=== PATIENT | male | born 1945 | race Caucasian/White ===

== ENCOUNTER 2018-06-18 09:33 | Outpatient (CLI) | payer BC, SELFPAY ==
[2018-06-18 10:16] LABS: HCT 49.6 % (40.0-50.0); Mean Corp. HGB Concentration 34.3 g/dL (32.0-36.0); Mean Corpuscular Hemoglobin 32.8 pg (27.0-33.0); Mean Corpuscular Volume 95.6 fL (80-95); Mean Platelet Volume 10.5 fL (8.0-11.0); Platelet Count 194 x1000/uL (130-400); RBC 5.19 m/cumm (4.50-6.00); RBC Distribution Width 13.6 % (11.8-14.1)
[2018-06-18 11:30] LABS: ALT 21 U/L (12-78); AST 25 U/L (15-37); Alkaline Phosphatase 76 U/L (46-116); Anion Gap 12.3 mmol/L (3-11); BUN 24 mg/dL (7-18); Bilirubin, Total 0.7 mg/dL (0.2-1.0); CO2 24.7 mmol/L (21.0-32.0); CREATININE 1.06 mg/dL (0.70-1.30); Calcium 8.4 mg/dL (8.5-10.1); Chloride 104 mmol/L (98-107); Folate 12.2 ng/mL (8.6-20.0); Glucose 95 mg/dL (70-100); Sodium 141 mmol/L (136-145); Total Protein 6.6 g/dL (6.4-8.2); Vitamin B12 365 pg/mL (193-986)
[2018-06-22 15:42] LABS: Testosterone, Free 9.96 ng/dL (3.28-12.2); Testosterone, Total 586 ng/dL (240-950)
== END 2018-06-18 09:53 ==
PROVIDERS: PCP Family Medicine; Visit Provider Family Medicine
DX: F41.8 Other specified anxiety disorders (principal); G60.9 Hereditary and idiopathic neuropathy, unspecified; F43.21 Adjustment disorder with depressed mood
CPT/HCPCS: 36415; 80053; 82306; 84402; 84403; 85027; 82607; 82746

== ENCOUNTER 2019-01-03 07:58 | Outpatient (CLI) | payer BC, SELFPAY | END 2019-01-03 08:18 | PROVIDERS: PCP Family Medicine; Visit Provider Internal Medicine Cardiovascular Disease | DX: R94.31 Abnormal electrocardiogram [ECG] [EKG] (principal); I49.3 Ventricular premature depolarization | CPT/HCPCS: 93005; 93010 ==

== ENCOUNTER 2019-01-16 09:35 | Emergency (ER) | payer BC, SELFPAY ==
[2019-01-16 09:41] VITALS: BP 145/78; PULSE 61; RESP 16; TEMP 36.6; O2SAT 98
[2019-01-16] MEDS: Normal Saline 1,000 ML 150 ML IV (10:00)
--- NOTE | 2019-01-16 10:04 | ED.GENADUL_ITS ---
Discharge Plan Discharge Details Chief Complaint: Nk/Back Pain Primary Care Provider: Debi Bone ED Provider: Won Sierra Home Meds and New Rx's Prescriptions: No Action gabapentin 300 mg capsule 900 mg PO TID RF: 0 lorazepam [Ativan] 0.5 mg tablet 0.5 mg PO BID PRNRF: 0 duloxetine 30 mg capsule,delayed release(DR/EC) 30 mg PO DAILY RF: 0 duloxetine 60 mg capsule,delayed release(DR/EC) 60 mg PO DAILY RF: 0 baclofen 10 mg tablet 10 mg PO BID PRNRF: 0 mecobalamin (vitamin B12) 1,000 mcg tablet,disintegrating 1,000 mcg SL DAILY RF: 0 sennosides [Senna Laxative] 8.6 MG tablet 8.6 mg PO 4 tabs daily RF: 0 polyethylene glycol 3350 [Miralax] 17 GM powder in packet 17 gm PO PRN RF: 0 cyclobenzaprine 10 MG tablet 10 mg PO TID RF: 0 lidocaine [Lidoderm] 1 EACH adhesive patch,medicated 1 ea Topical ON 12 HRS/ OFF 12 HR RF: 0 MEDICAL MARIJUANA Inhalation PRN RF: 0 levalbuterol tartrate 45 mcg/actuation HFA aerosol inhaler 15,000,000 mcg Inhalation QID PRNRF: 0 zolpidem 10 MG tablet 10 mg PO .QHS RF: 0 docusate sodium [DOK] 100 mg Capsule 100 mg PO RF: 0 oxycodone 5 mg Tablet 5 - 10 mg PO PRN PRNRF: 0 Medical Decision Making 73-year-old gentleman history of chronic back pain who presents 5 days postop from a T8-T12 spinal fusion with persistent back pain and now worsening lower extremity weakness. Described an unremarkable postoperative course with gradual improvement in function. However, yesterday evening and this morning has been unable to stand independently because of subjective bilateral leg weakness. No associated constitutional complaints of increased pain, increased incisional pain or discharge, change in bowel habits, or urinary retention. Nonfocal exam except for CT with well approximated wound edges and no evidence of acute infection. Labs ordered and pending. Because of his acute subjective change in bilateral leg weakness temporally related to recent surgery, appropriate clinical assessment includes MRI imaging of his spine and contents. MRI unavailable at [facility] on weekends. Discussed case with neurosurgery resident and emergency physician at [facility] [place]. Patient accepted for transfer and more advanced imaging. Of note, patient's family described him having difficulty with ADLs since his discharge home from [facility]. Requesting higher level of management with physical therapy if patient discharged from the [facility] [place] emergency department. 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 Medical Records Medical records reviewed: Yes I reviewed the patient's medical records. Lab Data Lab results reviewed: Yes I reviewed the patient's lab results. Labs: Lab Results 01/16/19 01/16/19 Range/Units 10:01 10:01 WBC 7.31 (4.4-10.8) k/cumm RBC 4.25 L (4.50-6.00) m/cumm Hgb 14.2 (13.5-17.5) g/dL Hct 41.2 (40.0-50.0) % MCV 96.9 H (80-95) fL MCH 33.4 H (27.0-33.0) pg MCHC 34.5 (32.0-36.0) g/dL RDW 13.3 (11.8-14.1) % Plt Count 238 (130-400) x1000/uL MPV 9.9 (8.0-11.0) fL Immature Gran % 0.5 Neutrophils % 71.1 Lymphocytes % 14.0 Monocytes % 13.1 Eosinophils % 0.8 Basophils % 0.5 Absolute Neutrophils 5.19 (1.2-6.7) k/cumm Absolute Lymphocytes 1.02 L (1.2-3.4) k/cumm Absolute Monocytes 0.96 H (0.11-0.7) k/cumm Absolute Eosinophils 0.06 (0.0-0.7) k/cumm Absolute Basophils 0.04 (0.0-0.2) k/cumm Sodium 141 (136-145) mmol/L Potassium 3.6 (3.5-5.1) mmol/L Chloride 104 (98-107) mmol/L Carbon Dioxide 29.8 (21.0-32.0) mmol/L Anion Gap 7.2 (3-11) mmol/L BUN 17 (7-18) mg/dL Creatinine 0.99 (0.70-1.30) mg/dL Estimated GFR/1.73 m2 >= 60.00 (mL/min/1.73m2) Glucose 107 H (74-106) mg/dL Calcium 8.4 L (8.5-10.1) mg/dL HPI 73-year-old gentleman with a history of chronic back pain, depression, peripheral neuropathy. Recent underwent a spinal fusion T8-T12. Had an unremarkable postoperative course with persistent back pain minimally responsive through his outpatient medications. However, yesterday evening, noted being unable to stand independently from new leg weakness. This morning, he also was unable to stand up from associated leg weakness. Notes his back pain has been severe but responding somewhat to outpatient medications including OxyContin, baclofen, gabapentin. He denies significant change in incisional pain, drainage from his incision. Denies fever/chills, change in bowel habits, urinary retention, focal extremity weakness, or change in lower extremity coloration. Has had no significant headache, neck pain, chest pain, palpitations, dyspnea, or abdominal pain. Denies melena or hematochezia. General Date/Time Provider Initiated Documentation: 01/16/19 09:51 . Related Data Home Medications Medication Instructions Recorded Confirmed zolpidem 10 mg PO .QHS 01/10/13 01/16/19 polyethylene glycol 3350 [Miralax] 17 gm PO PRN gm 10/10/15 01/16/19 sennosides [Senna Laxative] 8.6 mg PO 4 tabs daily 10/10/15 01/16/19 cyclobenzaprine 10 mg PO TID tab-cap 04/09/17 01/16/19 lidocaine [Lidoderm] 1 ea TOPICAL ON 12 HRS/ OFF 12 HR 04/09/17 01/16/19 patch Medical Marijuana INHALATION PRN 04/30/17 01/03/19 gabapentin 300 mg capsule 900 mg PO TID cap 08/04/18 01/16/19 baclofen 10 mg tablet 10 mg PO BID PRN 12/23/18 01/16/19 duloxetine 30 mg capsule,delayed 30 mg PO DAILY 12/23/18 01/16/19 release duloxetine 60 mg capsule,delayed 60 mg PO DAILY 12/23/18 01/16/19 release lorazepam 0.5 mg tablet 0.5 mg PO BID PRN 12/23/18 01/16/19 mecobalamin (vitamin B12) 1,000 1,000 mcg SL DAILY 12/23/18 01/16/19 mcg disintegrating tablet,sublingual levalbuterol tartrate 45 15,000,000 mcg INHALATION QID PRN 01/03/19 01/16/19 mcg/actuation aerosol inhaler docusate sodium [DOK] 100 mg PO 01/16/19 oxycodone 5 - 10 mg PO PRN PRN 01/16/19 01/16/19 Allergies Allergy/AdvReac Type Severity Reaction Status Date / Time azithromycin Allergy Intermediate Unverified 01/16/19 09:44 chlorpheniramine Allergy Mild Unverified 01/16/19 09:44 [From Contac Cold-Flu Day and Night] phenylephrine HCl Allergy Mild Unverified 01/16/19 09:44 [From Contac Cold-Flu Day and Night] propoxyphene HCl Allergy Mild Unverified 01/16/19 09:44 [From Wygesic] tramadol Allergy Mild Unverified 01/16/19 09:44 General Stated Complaint: Nk/Back Pain DEIDRA: 3 Review of Systems All systems reviewed & are unremarkable except as noted in HPI and below PFSH Medical History Anxiety (Chronic) BPH (benign prostatic hyperplasia) (Chronic) Chronic back pain (Chronic) Depression (Chronic) Essential tremor (Chronic 04/30/17) Mild cognitive impairment (Chronic) Peripheral neuropathy (Chronic) Polycythemia (Chronic) Tubular adenoma of colon (Acute 11/28/16) Vitamin B12 deficiency (Chronic) Surgical History Colonoscopy - MAC (11/28/16) Repair of inguinal hernia Spinal Fusion t8-t10 Thyroid Family History Father Liver cancer Mother Arthritis Social History Smoking/Tobacco Use Status: Never Alcohol Intake: never Drug use: Occasionally Substance use type: marijuana Household members: spouse What type of physical activity do you participate in: none and normal ROM and activity Do you feel safe at home: Yes Do you feel safe in your relationship?: Yes Exam Narrative Exam Narrative: Nursing note and vital signs have been reviewed and noted. GENERAL: alert, active, no acute distress, well -hydrated, well-nourished HEENT: atraumatic/normocephalic, PERRLA, EOMI, conjunctiva clear, external ears/canals normal, nasal mucosa normal NECK: supple, full range of motion, no mass, normal lymphadenopathy, no thyromegaly CARDIOVASCULAR: RRR, no murmurs, nl pulses, no edema PULMONARY: nl effort, no audible wheezing or stridor, nl breath sounds with no focal deficit. no chest wall tenderness ABDOMEN: soft, non-tender, non-distended, no mass, no organomegaly EXTREMITY: normal muscle tone, all joints with FROM, no deformity or tenderness SKIN: no exanthem appreciated NEURO: gross motor exam normal, difficulty with stance and gait from subjective weakness/pain BACK: Midline incision with well approximated wound edges and appropriate erythema. No significant discharge swelling PSYCH: alert and oriented, Course Vital Signs Vital signs: Vital Signs Temperature 97.9 F 01/16/19 09:41 Pulse 61 01/16/19 09:41 Respiratory Rate 16 01/16/19 09:41 Blood Pressure 145/78 H 01/16/19 09:41 Pulse Oximetry 98 01/16/19 09:41 Temperature 97.9 F 01/16/19 09:41 Temperature Source Temporal Artery Scan 01/16/19 09:41 Pulse 61 01/16/19 09:41 Respiratory Rate 16 01/16/19 09:41 Respiratory Effort Non-Labored 01/16/19 09:41 Blood Pressure 145/78 H 01/16/19 09:41 Blood Pressure Position Sitting 01/16/19 09:41 Pulse Oximetry 98 01/16/19 09:41 Oxygen Delivery Method Room Air 01/16/19 09:41 Oxygen Flow Rate 0 01/16/19 09:41 Pain Level 8 01/16/19 09:41
[2019-01-16 10:14] LABS: Abs Immature Grans 0.04 k/cumm (0.0-0.09); Absolute Basophil Count 0.04 k/cumm (0.0-0.2); Absolute Eosinophil Count 0.06 k/cumm (0.0-0.7); Absolute Lymphocyte Count 1.02 k/cumm (1.2-3.4); Absolute Monocyte Count 0.96 k/cumm (0.11-0.7); Absolute Neutrophil Count 5.19 k/cumm (1.2-6.7); Basophils % 0.5; Eosinophils % 0.8; HCT 41.2 % (40.0-50.0); HGB 14.2 g/dL (13.5-17.5); Immature Grans % 0.5; Mean Corp. HGB Concentration 34.5 g/dL (32.0-36.0); Mean Corpuscular Hemoglobin 33.4 pg (27.0-33.0); Mean Corpuscular Volume 96.9 fL (80-95); Mean Platelet Volume 9.9 fL (8.0-11.0); Monocytes % 13.1; Neutrophils % 71.1; Platelet Count 238 x1000/uL (130-400); RBC 4.25 m/cumm (4.50-6.00); RBC Distribution Width 13.3 % (11.8-14.1); White Blood Cell Count 7.31 k/cumm (4.4-10.8)
[2019-01-16 10:20] LABS: Anion Gap 7.2 mmol/L (3-11); BUN 17 mg/dL (7-18); CO2 29.8 mmol/L (21.0-32.0); CREATININE 0.99 mg/dL (0.70-1.30); Calcium 8.4 mg/dL (8.5-10.1); Chloride 104 mmol/L (98-107); Glucose 107 mg/dL (74-106); Potassium 3.6 mmol/L (3.5-5.1); Sodium 141 mmol/L (136-145)
[2019-01-16] MEDS: MORPHine 10 MG/ML VIAL 8 MG IVP (11:32)
[2019-01-16] MEDS: LORazepam 2 MG/ML VIAL 1 MG IVP (11:33)
[2019-01-16 11:45] VITALS: BP 121/78; PULSE 74; RESP 18; O2SAT 98
--- NOTE | 2019-01-16 11:52 | PDOC.ERCMPRO ---
Care Management Progress Note SHERRI Patel met with Lucho at the bedside, Lucho reported increased pain resulting in decreased mobility in the home setting. He is agreeable to SNF placement at this time for short term recovery post-op as he reports he does not want his to have to provide his care. SHERRI met with MD Sierra who reported he felt Lucho would have benefitted from SNF placement post surgically. SHERRI met with Lucho's , Priti and daughter's Michelle regarding options for home services and SNF. The family and Lucho feel he will be best served by a short rehab stay. His reports this injury was a workman's comp related injury and she has settlement money set aside to provide his care. SHERRI made a copy of the card and will fax with referral to SNF in [facility] and [facility] areas.
== END 2019-01-16 11:50 ==
PROVIDERS: Emergency Provider Emergency Medicine; PCP Family Medicine
DX: M54.89 Other dorsalgia (principal); G89.29 Other chronic pain; Z98.1 Arthrodesis status
CPT/HCPCS: 80048; 99285; 85025; 99284; J2060; J2270

== ENCOUNTER 2019-03-21 10:48 | Outpatient (REF) | payer BC, SELFPAY ==
[2019-03-21 19:30] LABS: HCT 47.2 % (40.0-50.0); HGB 16.1 g/dL (13.5-17.5); Mean Corp. HGB Concentration 34.1 g/dL (32.0-36.0); Mean Corpuscular Hemoglobin 33.1 pg (27.0-33.0); Mean Corpuscular Volume 96.9 fL (80-95); Mean Platelet Volume 10.8 fL (8.0-11.0); Platelet Count 229 x1000/uL (130-400); RBC 4.87 m/cumm (4.50-6.00); RBC Distribution Width 13.8 % (11.8-14.1); White Blood Cell Count 6.55 k/cumm (4.4-10.8)
[2019-03-21 19:46] LABS: Hemoglobin A1C 5.4 % (3.8-5.6)
[2019-03-21 20:11] LABS: Vitamin B12 589 pg/mL (193-986)
== END 2019-03-21 11:08 ==
LOC: NCHCN 10:48
PROVIDERS: PCP Family Medicine; Visit Provider Family Medicine
DX: R73.03 Prediabetes (principal); E53.8 Deficiency of other specified B group vitamins; R41.3 Other amnesia
CPT/HCPCS: 85027; 82607; 83036

== ENCOUNTER 2019-06-17 01:49 | Outpatient (CLI) | payer BC, SELFPAY ==
[2019-06-17 14:05] LABS: CREATININE 1.12 mg/dL (0.70-1.30)
[2019-06-17] MEDS: Omnipaque 350 MG/ML 100 ML BTL IV (14:14)
[2019-06-17] MEDS: Normal Saline - Diluent 50 ML VIAL IV ×2 (14:16→14:17)
--- NOTE | 2019-06-17 14:51 | DI.CT_ITS ---
EXAM: CT ABDOMEN PELVIS WO/W TECHNIQUE: Imaging Protocol: Axial computed tomography images with coronal and sagittal reformatted images were created and reviewed. Pre IV contrast, venous phase imaging and 7 minutes delayed imaging were performed. CONTRAST MATERIAL: Intravenous: Omnipaque 350 Contrast volume:100 cc Oral:no COMPARISON: CT THORACIC SPINE WO CONTRAST from 05/08/2017 FINDINGS: The heart size is normal. There are minimal coronary artery calcifications. No pleural or pericardi al effusions are seen. The lung bases are clear. The liver shows mild fatty infiltration. No focal liver lesions are seen. There are few small stones seen in the dependent portion of the gallbladder . No abnormal gallbladder distention or wall thickening is seen. The spleen, adrenals and pancreas are unremarkable. There is a small diverticulum of the descending duodenum. There is a small cyst near the upper pole of the right kidney. A small cyst is seen posteriorly in t he mid right kidney. There are a few small parapelvic cysts in the right kidney. No renal calculi a re seen. There is no evidence of hydronephrosis. Nephrograms and pyelograms are symmetric. The pro state is mildly enlarged. Urinary bladder is not optimally distended. There is no bladder wall thic kening, focal bladder mass or bladder calculus. There is diverticulosis throughout the descending and sigmoid colon. There is no evidence of diverti culitis. There is no small bowel dilatation. The aorta is normal in diameter and shows mild to mode rate calcifications. There are rods in the lower thoracic spine. IMPRESSION: Small bilateral renal cysts. No evidence of hydronephrosis. No bladder abnormality is identified. The prostate is enlarged.. RADIATION DOSE DELIVERED: Total DLP DATA REPOSITORY: All CT scans at this facility are submitted to the National Radiology Data Registry (NRDR) Dose Index Registry (DIR) with the [employer] (ACR). RADIATION OPTIMIZATION: All CT scans at this facility use at least one of these dose optimization te chniques: automated exposure control; mA and/or kV adjustment per patient size (includes targeted exa ms where dose is matched to clinical indication); or iterative reconstruction.
== END 2019-06-17 02:09 ==
PROVIDERS: PCP Family Medicine; Visit Provider Nurse Practitioner Gerontology
DX: R10.9 Unspecified abdominal pain (principal); N40.1 Benign prostatic hyperplasia with lower urinary tract symptoms; K76.0 Fatty (change of) liver, not elsewhere classified; K80.20 Calculus of gallbladder without cholecystitis without obstruction; K57.10 Diverticulosis of small intestine without perforation or abscess without bleeding; N28.1 Cyst of kidney, acquired
CPT/HCPCS: 74178; 82565; J3490

== ENCOUNTER 2019-06-22 14:45 | Outpatient (REF) | payer BC, SELFPAY ==
[2019-06-22 19:02] LABS: HCT 47.6 % (40.0-50.0); HGB 16.3 g/dL (13.5-17.5); Mean Corp. HGB Concentration 34.2 g/dL (32.0-36.0); Mean Corpuscular Hemoglobin 33.6 pg (27.0-33.0); Mean Corpuscular Volume 98.1 fL (80-95); Mean Platelet Volume 10.5 fL (8.0-11.0); Platelet Count 254 x1000/uL (130-400); RBC 4.85 m/cumm (4.50-6.00); RBC Distribution Width 14.5 % (11.8-14.1); White Blood Cell Count 8.42 k/cumm (4.4-10.8)
[2019-06-22 20:40] LABS: ALT 21 U/L (16-63); AST 21 U/L (15-37); Alkaline Phosphatase 119 U/L (46-116); Amylase 55 U/L (25-115); Anion Gap 6.5 mmol/L (3-11); BUN 19 mg/dL (7-18); Bilirubin, Total 0.5 mg/dL (0.2-1.0); CO2 29.5 mmol/L (21.0-32.0); CREATININE 1.14 mg/dL (0.70-1.30); Calcium 8.7 mg/dL (8.5-10.1); Chloride 103 mmol/L (98-107); Glucose 96 mg/dL (74-106); Lipase 41 U/L (73-393); Potassium 4.2 mmol/L (3.5-5.1); Sodium 139 mmol/L (136-145); TSH (W/Ref FT4) 2.07 uIU/mL (0.36-3.74); Total Protein 6.6 g/dL (6.4-8.2)
== END 2019-06-22 15:05 ==
LOC: NCHCN 14:45
PROVIDERS: PCP Family Medicine; Visit Provider Family Medicine
DX: R14.0 Abdominal distension (gaseous) (principal); R11.0 Nausea
CPT/HCPCS: 80053; 83690; 85027; 82150; 84443

== ENCOUNTER 2020-05-14 09:08 | Outpatient (REF) | payer MEDICARE, SELFPAY ==
[2020-05-17 20:40] LABS: 2-Hydroxy Ethyl Flurazepam Not Detected ng/mL (Cutoff: 10); 3,4-methylenedioxyamphetamine Not Detected ng/mL (Cutoff: 100); 3,4-methylenedioxyethylampheta Not Detected ng/mL (Cutoff: 100); 3,4-methylenedioxymethamphetam Not Detected ng/mL (Cutoff: 100); 6-monoacetylmorphine Not Detected ng/mL (Cutoff: 25); Alpha-Hydroxy Midazolam Not Detected ng/mL (Cutoff: 10); Alpha-Hydroxy Triazolam Not Detected ng/mL (Cutoff: 10); Alpha-Hydroxyalprazolam Not Detected ng/mL (Cutoff: 10); Alpha-OH-alprazolam Glucuronid Not Detected ng/mL (Cutoff: 50); Alprazolam Not Detected ng/mL (Cutoff: 10); Amphetamine Not Detected ng/mL (Cutoff: 100); Barbiturates Negative ng/mL (Cutoff: 200); Buprenorphine Not Detected ng/mL (Cutoff: 5); Chlordiazepoxide Not Detected ng/mL (Cutoff: 10); Clobazam Not Detected ng/mL (Cutoff: 10); Clonazepam Not Detected ng/mL (Cutoff: 10); Cocaine Negative ng/mL (Cutoff: 150); Codeine Not Detected ng/mL (Cutoff: 25); Comment Normal; Creatinine, U 96.8 mg/dL; Diazepam Not Detected ng/mL (Cutoff: 10); Dihydrocodeine Not Detected ng/mL (Cutoff: 25); EDDP Not Detected ng/mL (Cutoff: 25); Ephedrine Not Detected ng/mL (Cutoff: 100); Fentanyl Not Detected ng/mL (Cutoff: 2); Flurazepam Not Detected ng/mL (Cutoff: 10); Hydrocodone Not Detected ng/mL (Cutoff: 25); Hydromorphone Not Detected ng/mL (Cutoff: 25); Hydromorphone-3-beta-glucuroni Not Detected ng/mL (Cutoff: 100); List Patient's Current Meds Not Provided; Lorazepam Not Detected ng/mL (Cutoff: 10); Lorazepam Glucuronide Not Detected ng/mL (Cutoff: 50); Meperidine Not Detected ng/mL (Cutoff: 25); Methadone Not Detected ng/mL (Cutoff: 25); Methamphetamine Not Detected ng/mL (Cutoff:100); Methylphenidate Not Detected ng/mL (Cutoff: 20); Midazolam Not Detected ng/mL (Cutoff: 10); Morphine Not Detected ng/mL (Cutoff: 25); N-Desmethylclobazam Not Detected ng/mL (Cutoff: 200); N-desmethyltapentadol Not Detected ng/mL (Cutoff: 50); Naloxone Not Detected ng/mL (Cutoff: 25); Norbuprenorphine Not Detected ng/mL (Cutoff: 5); Norfentanyl Not Detected ng/mL (Cutoff: 2); Norhydrocodone Not Detected ng/mL (Cutoff: 25); Normeperidine Not Detected ng/mL (Cutoff: 25); Noroxycodone Present ng/mL (Cutoff: 25); Noroxymorphone Present ng/mL (Cutoff: 25); O-desmethyltramadol Not Detected ng/mL (Cutoff: 25); Oxazepam Glucuronide Not Detected ng/mL (Cutoff: 50); Phencyclidine (PCP) Not Detected ng/mL (Cutoff: 20); Phentermine Not Detected ng/mL (Cutoff: 100); Prazepam Not Detected ng/mL (Cutoff: 10); Propoxyphene Not Detected ng/mL (Cutoff: 25); Pseudoephedrine Not Detected ng/mL (Cutoff: 100); Ritalinic Acid Not Detected ng/mL (Cutoff: 100); Specific Gravity 1.015; Tapentadol Not Detected ng/mL (Cutoff: 25); Temazepam Not Detected ng/mL (Cutoff: 10); Temazepam Glucuronide Not Detected ng/mL (Cutoff: 50); Tetrahydrocannabinol Presumptive Positive ng/mL (Cutoff: 50); Tramadol Not Detected ng/mL (Cutoff: 25); Triazolam Not Detected ng/mL (Cutoff: 10); Zolpidem Phenyl-4-Carboxy acid Present ng/mL (Cutoff: 10); pH 6.2
[2020-06-21 08:37] LABS: Carboxy-THC Interpretation Positive.; Delta-9 CarboxyThc by LC-MS/MS 34 ng/mL (Cutoff:<3)
== END 2020-05-14 09:09 | disposition home or self-care (01) ==
LOC: LBN 09:08
PROVIDERS: PCP Family Medicine; Visit Provider Nurse Practitioner Family
DX: M96.1 Postlaminectomy syndrome, not elsewhere classified (principal); G58.8 Other specified mononeuropathies; Z79.891 Long term (current) use of opiate analgesic
CPT/HCPCS: 80307; 80347; 80349; 80364

== ENCOUNTER 2020-10-25 08:00 | Outpatient (CLI) | payer MEDICARE, SELFPAY ==
[2020-10-25 08:01] VITALS: BP 130/71; PULSE 74; RESP 18; TEMP 36.6; O2SAT 98
--- NOTE | 2020-10-25 08:15 | DI.RAD_ITS ---
Exam(s) XR PAIN CLINIC THORACIC SP 2V EXAM: XR PAIN CLINIC THORACIC SP 2V CLINICAL HISTORY: Dx: Intercostal Neuralgia TECHNIQUE: 2D and realtime digital imaging was performed. CONTRAST MATERIAL: Refer to procedure report. COMPARISON: No exams were available for comparison FINDINGS: Fluoroscopy was provided for Dr. Carmona during the performance of a intercostal nerve block. Please r efer to the procedure report for complete details. Ka,r=9.24 mGy IMPRESSION:
--- NOTE | 2020-10-25 08:55 | PDOC.PAIN_ITS ---
Pain Clinic Procedure Note Procedure Note Procedure Note: Left 10th and 11th Intercostal nerve blocks CRICKET DEGROOT has been referred to the [facility] for intercostal nerve blocks. COMMENTS: Pre-procedure pain level was 6/10. Pre-procedure diagnosis: Intercostal neuritis Post-procedure diagnosis: Same Patient was interviewed and the medical record reviewed. There were no medical, pharmacologic, radiographic or other structural contraindications to attempting fluoroscopically guided intercostal nerve blocks. Risks and expected side effects as well as potential benefit of the procedure were reviewed and voiced concerns addressed. The printed consent form was signed and witnessed. Standard time-out procedure was performed. Patient was placed in the prone position on the fluoroscopy table and automated blood pressure cuff and pulse oximeter applied. Fluoroscopy was utilized to identify the left 10th and 11th ribs. A skin thomas was made for the needle insertion site. A Chlorhexadine prep was carried out, and sterile drapes were applied. Local anesthesia was achieved in the skin and subcutaneous tissues. A 22 gauge curved tip 3.5 spinal needle was then inserted, advanced with fluoroscopic guidance onto the rib and then the needle was walked inferiorly off the rib, confirmed on the AP view. After negative aspiration, 1 ml of Omnipaque 240 was injected confirming position in A/P views. This showed a good spread of dye medial and laterally. There was no vascular update with contrast injection under continuous fluoroscopy. 10 mg of Dexamethasone was injected, followed by 4 ml of 0.5% Bupivacaine flush for the nerve root block, as well. There was no unusual discomfort expressed.The needle was withdrawn. The patient tolerated the procedure well. A Band-Aid was applied. Vital signs were stable throughout the procedure and were as recorded in nursing records. If given, dosages of intravenous drugs for anxiolysis and analgesia were documented in nursing records. Follow up plans and appointments were discussed. Post procedure instruction was given as documented in nursing records and patient was discharged in the care of an identified charter bus driver. COMMENTS:It was difficult to determine if his pain was in the 10th or 11th intercostal nerve distribution. For this reason I chose to block both of these nerves. Post-procedure pain level was 1/10. Jesse Carmona DO, MPH Pain Management CC: Debi Bone
[2020-10-25] MEDS: Dexamethasone Sod. Phos./Pres-Free 10 MG/ML VIAL IJ (08:56)
[2020-10-25] MEDS: Bupivacaine 0.5% Pres-Free 10 ML VIAL IJ (08:56)
[2020-10-25] MEDS: Omnipaque 240 MG/ML 50 ML BTL IJ (08:57)
[2020-10-25 08:59] VITALS: BP 131/86; PULSE 72; RESP 16; O2SAT 96
== END 2020-10-25 08:01 | disposition home or self-care (01) ==
LOC: PC 08:15
PROVIDERS: PCP Family Medicine; Visit Provider Preventive Medicine Occupational Medicine
DX: G58.0 Intercostal neuropathy (principal)
CPT/HCPCS: 64420; 64421; 72070; Q9967

== ENCOUNTER 2020-10-25 10:54 | Observation (INO) | payer MEDICARE, SELFPAY ==
[2020-10-25] VITALS (25 sets, daily range): BP systolic 116–152; BP diastolic 50–80; PULSE 76–89; RESP 12–28; TEMP 36–36.8; O2SAT 93–97
--- NOTE | 2020-10-25 11:00 | RT.EKG_ITS ---
APPROVED REPORT Exam: Resting ECG Reason for Exam: sob Patient Location: E HR:83 bpm ECG Measurements Heart Rate 83 AXIS IN 151 P 31 QRSd 127 QRS 70 QT 381 T 241 QTc 449 Conclusion Sinus rhythm...normal P axis, V-rate 60- 99 Right bundle branch block...QRSd>120, terminal axis(90,270) Abnormal T, consider ischemia, lateral leads...T <-0.20mV, I aVL V5 V6
--- NOTE | 2020-10-25 11:15 | DI.RAD_ITS ---
Exam(s) XR CHEST 2V PA LATERAL EXAM: XR CHEST 2V PA LATERAL CLINICAL HISTORY: left chest pain post thoracic injection TECHNIQUE: 2D digital imaging was performed of the chest. Views were obtained. PA and lateral vi ews were obtained. COMPARISON: No exams were available for comparison FINDINGS: MEDIASTINUM: Normal. HEART: Normal. PULMONARY VASCULATURE: Normal. LUNGS: Clear. PLEURAL SPACE: No pleural effusion or pneumothorax. BONE:Within normal limits for the patient's age. Orthopedic rods are seen in the lower thoracic and upper lumbar spine. OTHER FINDINGS:Normal. IMPRESSION: 1. No acute pulmonary findings. 2. No pneumothorax. DATA REPOSITORY: RADIATION DOSE DELIVERED:
[2020-10-25 11:47] LABS: Abs Immature Grans 0.03 10^3/uL (0.0-0.06); Absolute Basophil Count 0.06 10^3/uL (0.0-0.2); Absolute Eosinophil Count 0.01 10^3/uL (0.0-0.7); Absolute Lymphocyte Count 1.04 10^3/uL (1.2-3.4); Absolute Monocyte Count 0.13 10^3/uL (0.1-0.8); Absolute Neutrophil Count 6.63 10^3/uL (1.2-6.7); Basophils % 0.8; Eosinophils % 0.1; HCT 46.3 % (40.0-50.0); HGB 15.7 g/dL (13.5-17.5); Immature Grans % 0.4; Lymphocytes % 13.2; MCH 33.9 pg (27.0-33.0); MCHC 33.9 % (32.0-36.0); MPV 10.1 fL (8.0-11.0); Monocytes % 1.6; Neutrophils % 83.9; Nucleated RBC 0 %; Platelet Count 208 10^3/uL (130-400); RBC 4.63 10^6/uL (4.36-5.78); RDW 13.5 % (11.8-14.1); RDW-SD 49.9 fL
[2020-10-25] MEDS: fentaNYL 100 MCG/2 ML VIAL 50 MCG IVP (11:53)
[2020-10-25 12:01] LABS: ALT 21 U/L (16-63); AST 20 U/L (15-37); Albumin 3.9 g/dL (3.4-5.0); Alkaline Phosphatase 76 U/L (46-116); Anion Gap 8.4 mmol/L (3-11); BUN 21 mg/dL (7-18); Bilirubin, Total 0.6 mg/dL (0.2-1.0); CO2 25.6 mmol/L (21.0-32.0); CREATININE 1.1 mg/dL (0.70-1.30); Calcium 8.4 mg/dL (8.5-10.1); Chloride 109 mmol/L (98-107); Glucose 134 mg/dL (74-106); Potassium 4.3 mmol/L (3.5-5.1); Sodium 143 mmol/L (136-145); Total Protein 6.7 g/dL (6.4-8.2); Troponin I < 0.05 ng/mL (<0.06)
[2020-10-25] MEDS: HYDROmorphone 2 MG/ML VIAL 0.5 MG IVP ×2 (12:37→13:22)
--- NOTE | 2020-10-25 13:00 | DI.CT_ITS ---
Exam(s) CT CHEST PE CTA EXAM: CT CHEST PE CTA CLINICAL HISTORY: left chest pain post thoracic injection left. TECHNIQUE: Imaging Protocol: Axial CT angiography was performed with multi-slice acquisition and mu lti-planar and/or 3D reconstructions. CONTRAST MATERIAL: Intravenous: Omnipaque 350 Contrast volume:100 mL COMPARISON: CT CT ABDOMEN PELVIS WO/W from 06/17/2019 FINDINGS: Tracheobronchial tree: Patent where visualized. Pulmonary parenchyma: No consolidation or dominant measurable mass. No architectural distortion. Mild dependent atelectasis in the bases. Pulmonary Arteries: No evidence of filling defect to suggest pulmonary emboli. Mediastinum and Di: No dominant adenopathy or fluid collection. Visualized thyroid gland: Unremarkable. Pleura: No effusion or pneumothorax. Heart: The heart is not dilated. No coronary artery calcifications are seen. No pericardial effusion. Aorta: Thoracic aorta non-dilated. No evidence of dissection. Upper abdomen: Cholelithiasis. No biliary ductal dilatation. Fatty liver. Soft tissues: Unremarkable. Bones: Within normal limits for the patient's age.Spinal rods in the lower thoracic and upper lumbar spine. IMPRESSION: 1. No evidence of pulmonary embolism, thoracic aortic dissection or aneurysm. 2. Results of this exam have been verbally communicated with provider. RADIATION DOSE DELIVERED: 447.11mGy.cm Total DLP DATA REPOSITORY: All CT scans at this facility are submitted to the National Radiology Data Registry (NRDR) Dose Index Registry (DIR) with the [employer] (ACR). RADIATION OPTIMIZATION: All CT scans at this facility use at least one of these dose optimization te chniques: automated exposure control; mA and/or kV adjustment per patient size (includes targeted exa ms where dose is matched to clinical indication); or iterative reconstruction.
[2020-10-25] MEDS: Lidocaine 5% Patch 1 PATCH TP (13:23)
[2020-10-25] MEDS: Omnipaque 350 MG/ML 100 ML BTL IJ (13:40)
[2020-10-25] MEDS: Gabapentin 100 MG CAP PO (14:35)
[2020-10-25 14:36] LABS: Source Nasal/Nares
[2020-10-25] MEDS: Ketorolac 15 MG/ML VIAL IVP (14:36)
--- NOTE | 2020-10-25 15:03 | ED.GENADUL_ITS ---
Discharge Plan Disposition Patient Disposition: [facility] INPATIENT Condition: Stable Discharge Details Chief Complaint: SOB Clinical Impression: Left flank pain Admit Date/Time: 10/25/20 14:30 Admit Provider: Edy Hernandez Attending Provider: Edy Hernandez Primary Care Provider: Debi Bone ED Provider: Kiesha Jara Discharge Data Discharge Date/Time-TO BE ENTERED AT DEPARTURE: 10/25/20 16:05 Medical Decision Making Discussed with Dr. Carmona, chest x-ray does not show pneumothorax, ordered CT scan secondary to persistent pain, CTA without acute abnormality per radiology interpretation in my review Significantly tender, I do not feel an obvious area of swelling which the patient is reporting, there is no abdominal pain with palpation No hypoxia, received numerous doses of analgesia without symptomatic improvement Will admit for observation and pain control We will initiate Neurontin Will be admitted by Dr. Hernandez hospitalist for pain control HPI General Mode of arrival: wheelchair . Date/Time Provider Initiated Documentation: 10/25/20 10:55 . Limitations to Documentation: no limitations . Information obtained by: patient . HPI Narrative: This 76-year-old male with history of neuropathy, tubular adenoma, and BPH presents status post T10 and T11 injection by Dr. Carmona, pain center just several hours prior to arrival. Patient states he was feeling fine post injection and now has significant radicular pain. He states he has some swelling as well. He denies any falls or injuries. He denies any anterior chest pain or and the shortness of breath is secondary to leg pain. He denies any fever or chills. He felt fine prior to the injections. He denies any additional complaints at this time. The pain is reportedly exacerbated with palpation. Reports enhancemenT of the pain instead of diminished sensation to the dermatome affected. Denies any nausea or vomiting. Denies any hemoptysis. Related Data Home Medications Medication Instructions Recorded Confirmed zolpidem 10 mg PO .QHS 01/10/13 10/25/20 polyethylene glycol 3350 [Miralax] 17 gm PO PRN gm 10/10/15 10/25/20 sennosides [Senna Laxative] 8.6 mg PO 4 tabs daily 10/10/15 10/25/20 Medical Marijuana INHALATION PRN 04/30/17 08/23/20 lorazepam 0.5 mg tablet 0.5 mg PO BID PRN 12/23/18 10/25/20 mecobalamin (vitamin B12) 1,000 1,000 mcg SL DAILY 12/23/18 10/25/20 mcg disintegrating tablet,sublingual levalbuterol tartrate 45 15,000,000 mcg INHALATION QID PRN 01/03/19 10/25/20 mcg/actuation aerosol inhaler ondansetron HCl 4 mg tablet 4 mg PO Q8H PRN 06/15/19 10/25/20 acetaminophen 500 mg tablet 1,000 mg PO TID PRN tab 10/13/19 10/25/20 oxycodone 5 mg tablet 5 mg PO BID PRN 28 Days #56 tab 08/23/20 10/25/20 MDD 2 tablets/day Previous Rx's Medication Instructions Recorded oxycodone 5 mg tablet 5 mg PO BID PRN 28 Days #56 tab 08/23/20 MDD 2 tablets/day Allergies Allergy/AdvReac Type Severity Reaction Status Date / Time tramadol Allergy Severe vertigo, Unverified 10/25/20 11:23 pt was hospitalized azithromycin Allergy Intermediate Liver Unverified 10/25/20 11:23 concerns chlorpheniramine Allergy Mild Unverified 10/25/20 11:23 [From Contac Cold-Flu Day and Night] phenylephrine HCl Allergy Mild Unverified 10/25/20 11:23 [From Contac Cold-Flu Day and Night] propoxyphene HCl Allergy Mild Unverified 10/25/20 11:23 [From Wygesic] General Stated Complaint: SOB DEIDRA: 2 Review of Systems All systems reviewed & are unremarkable except as noted in HPI and below PFSH Medical History (Updated 10/26/20 @ 09:52 by TERE Sandoval) Abdominal distension Anxiety BPH (benign prostatic hyperplasia) Chronic back pain Claustrophobia Pt prefers door and window to be open when in a room. Depression Diverticulosis Essential tremor (04/30/17) Mild cognitive impairment Nausea Passive suicidal ideations Peripheral neuropathy Polycythemia Rhinitis Tubular adenoma of colon (11/28/16) Vitamin B12 deficiency Surgical History Colonoscopy - MAC (11/28/16) Repair of inguinal hernia Spinal Fusion t8-t10 Thyroid Family History Father Liver cancer Mother Arthritis Social History Smoking/Tobacco Use Status: Never Smoking risk assessment performed?: Yes Alcohol Intake: never Drug use: Occasionally Substance use type: marijuana Details: Pt last used mj on 10/24/20. Household members: spouse Current gender identity: male What type of physical activity do you participate in: none and normal ROM and activity Do you feel safe at home: Yes Do you feel safe in your relationship?: Yes Exam Const General: cooperative, comfortable and no acute distress HENMT Head: normal to inspection Face and sinus: normal facial exam Eyes Sclera: sclerae normal Chest Chest: normal inspection of the chest Resp Effort & Inspection: normal respiratory effort Auscultation: clear to auscultation bilaterally Cardio Rate: regular rate Rhythm: regular rhythm GI Inspection: normal to inspection Other: Distal pulses intac Extrem Shoulder/upper arm images: 1. Tenderness to palpation, no erythema, no crepitus Other: Distal pulses intact Course Vital Signs Vital signs: Vital Signs Temperature 36.5 C 10/25/20 11:03 Pulse 84 10/25/20 11:03 Respiratory Rate 20 10/25/20 11:03 Blood Pressure 152/71 H 10/25/20 11:03 Pulse Oximetry 97 10/25/20 11:03 Temperature 36.5 C 10/25/20 11:03 Temperature Source Temporal Artery Scan 10/25/20 11:03 Pulse 85 10/25/20 13:17 Pulse 86 10/25/20 14:10 Respiratory Rate 22 10/25/20 14:10 Respiratory Effort 10/25/20 12:12 Respiratory Depth Normal 10/25/20 12:12 Respiratory Pattern Normal 10/25/20 12:12 Blood Pressure 128/51 L 10/25/20 13:17 Blood Pressure Mean 66 10/25/20 13:17 Blood Pressure Position Supine 10/25/20 11:03 Pulse Oximetry 95 10/25/20 14:00 Oxygen Delivery Method Room Air 10/25/20 11:34 Oxygen Flow Rate 0 10/25/20 11:34 Lab/Test Results Lab/Test Results: Laboratory Tests Range/Units 10/25/20 10/25/20 10/25/20 11:15 11:15 14:25 WBC (4.4-10.8) 10^3/uL 7.90 RBC (4.36-5.78) 10^6/uL 4.63 Hgb (13.5-17.5) g/dL 15.7 Hct (40.0-50.0) % 46.3 MCV (80-95) fL 100.0 H MCH (27.0-33.0) pg 33.9 H MCHC (32.0-36.0) % 33.9 RDW (11.8-14.1) % 13.5 Plt Count (130-400) 10^3/uL 208 MPV (8.0-11.0) fL 10.1 Immature Gran % 0.4 Neutrophils % 83.9 Lymphocytes % 13.2 Monocytes % 1.6 Eosinophils % 0.1 Basophils % 0.8 Nucleated RBC % % 0 Absolute Neutrophils (1.2-6.7) 10^3/uL 6.63 Absolute Lymphocytes (1.2-3.4) 10^3/uL 1.04 L Absolute Monocytes (0.1-0.8) 10^3/uL 0.13 Absolute Eosinophils (0.0-0.7) 10^3/uL 0.01 Absolute Basophils (0.0-0.2) 10^3/uL 0.06 Sodium (136-145) mmol/L 143 Potassium (3.5-5.1) mmol/L 4.3 Chloride (98-107) mmol/L 109 H Carbon Dioxide (21.0-32.0) mmol/L 25.6 Anion Gap (3-11) mmol/L 8.4 BUN (7-18) mg/dL 21 H Creatinine (0.70-1.30) mg/dL 1.1 Estimated GFR/1.73 m2 (mL/min/1.73m2) >= 60.00 Glucose (74-106) mg/dL 134 H Calcium (8.5-10.1) mg/dL 8.4 L Total Bilirubin (0.2-1.0) mg/dL 0.6 AST (15-37) U/L 20 ALT (16-63) U/L 21 Alkaline Phosphatase (46-116) U/L 76 Troponin I (<0.06) ng/mL < 0.05 Total Protein (6.4-8.2) g/dL 6.7 Albumin (3.4-5.0) g/dL 3.9 COVID-19 Source Nasal/Nares
[2020-10-25 15:40] LABS: COVID-19 PCR Negative (Negative)
--- NOTE | 2020-10-25 16:57 | HPE_ITS ---
Date of service: 10/25/20 Time of Service: 16:57 Assessment and Plan Assessment and plan (1) Left flank pain: Status: Acute Assessment and plan: Likely neuropathic. He has had an outbreak of zoster in the past and has had a zoster vaccination. No lesions noted but could be zoster still. Consider valtrex Nortruptyline QHS initiated. Oxycodone 10mg Q6H prn. Methylprednisolone 60mg IV x 1. Of note, he was on neurotin 900mg TID in the past. (2) Chronic back pain: Status: Chronic Assessment and plan: S/P steroid injection. History of Present Illness History of Present Illness Chief Complaint: Left flank pain Narrative: This is a 75 yo male with a PMH of chronic back pain, BPH with urinary retention, essential tremor, ED, depression/anxiety, polycythemia, peripheral neuropathy, herpes zoster. He is s/p T10, T11 steroid injection by Dr. Carmona in the pain ce nter several hours prior to presentation to the ED. He felt fine immediately post-procedure the developed sudden onset of pain in the L flank area with c/o skin sensitivity / feels like barbed wire. No pain in the groin/buttocks/leg. He described a swelling in the area. No swelling appreciated by ED provider. No F/C, pain at the injection site. No N/V/abd pain, dysuria. VSS. Lab showed a normal WBC count. Creatinine 1.1. Chest xray neg for pneumothorax. CT abd w/o acute findings. Given a dose of fentanyl and 2 doses of dilaudid IV, 15mg Ketoralac in the ED. Admitted for pain management as observation. Review of Systems All systems reviewed & are unremarkable except as noted in HPI and below PFSH Medical History (Updated 10/26/20 @ 07:50 by Edy Hernandez MD) Abdominal distension Anxiety BPH (benign prostatic hyperplasia) Chronic back pain Claustrophobia Pt prefers door and window to be open when in a room. Depression Diverticulosis Essential tremor (04/30/17) Mild cognitive impairment Nausea Passive suicidal ideations Peripheral neuropathy Polycythemia Rhinitis Tubular adenoma of colon (11/28/16) Vitamin B12 deficiency Surgical History Colonoscopy - MAC (11/28/16) Repair of inguinal hernia Spinal Fusion t8-t10 Thyroid Family History Father Liver cancer Mother Arthritis Social History Smoking/Tobacco Use Status: Never Smoking risk assessment performed?: Yes Alcohol Intake: never Drug use: Occasionally Substance use type: marijuana Details: Pt last used mj on 10/24/20. Household members: spouse Current gender identity: male What type of physical activity do you participate in: none and normal ROM and activity Do you feel safe at home: Yes Do you feel safe in your relationship?: Yes Meds Allergies and Home Medications Allergies Allergy/AdvReac Type Severity Reaction Status Date / Time tramadol Allergy Severe vertigo, Unverified 10/25/20 11:23 pt was hospitalized azithromycin Allergy Intermediate Liver Unverified 10/25/20 11:23 concerns chlorpheniramine Allergy Mild Unverified 10/25/20 11:23 [From Contac Cold-Flu Day and Night] phenylephrine HCl Allergy Mild Unverified 10/25/20 11:23 [From Contac Cold-Flu Day and Night] propoxyphene HCl Allergy Mild Unverified 10/25/20 11:23 [From Wygesic] Home Medications Medication Instructions Recorded Confirmed Type zolpidem 10 mg PO .QHS 01/10/13 10/25/20 History polyethylene glycol 3350 [Miralax] 17 gm PO PRN gm 10/10/15 10/25/20 History sennosides [Senna Laxative] 8.6 mg PO 4 tabs daily 10/10/15 10/25/20 History Medical Marijuana INHALATION PRN 04/30/17 08/23/20 History lorazepam 0.5 mg tablet 0.5 mg PO BID PRN 12/23/18 10/25/20 History mecobalamin (vitamin B12) 1,000 1,000 mcg SL DAILY 12/23/18 10/25/20 History mcg disintegrating tablet,sublingual levalbuterol tartrate 45 15,000,000 mcg INHALATION QID PRN 01/03/19 10/25/20 History mcg/actuation aerosol inhaler ondansetron HCl 4 mg tablet 4 mg PO Q8H PRN 05/06/20 09/16/21 History acetaminophen 500 mg tablet 1,000 mg PO TID PRN tab 10/13/19 10/25/20 History oxycodone 5 mg tablet 5 mg PO BID PRN 28 Days #56 tab 08/23/20 10/25/20 Rx MDD 2 tablets/day Exam Const General: cooperative and no acute distress Nutritional Appearance: overweight Orientation: alert and oriented x3 HENMT Head: normocephalic and atraumatic Neck Neck: full ROM Resp Effort & Inspection: normal respiratory effort Auscultation: clear to auscultation bilaterally Cardio Rate: regular rate Rhythm: regular rhythm Heart Sounds: S1 normal and S2 normal GI Inspection: normal to inspection Palpation: soft and nontender Auscultation: normal bowel sounds Back/Spine/Pelvis Back/spine/pelvis image: 1. Tender to light touch; pt guards the area. Lidoderm patch in place. No swelling, erythema, ecchymoses. 2. Epidural injection site w/o erythema, swelling. Results Labs Result diagrams: 10/26/20 06:17 10/25/20 11:15 Labs: Laboratory Results - last 24 hr 10/25/20 10/25/20 10/25/20 11:15 11:15 14:25 WBC 7.90 RBC 4.63 Hgb 15.7 Hct 46.3 MCV 100.0 H MCH 33.9 H MCHC 33.9 RDW 13.5 Plt Count 208 MPV 10.1 Immature Gran % 0.4 Neutrophils % 83.9 Lymphocytes % 13.2 Monocytes % 1.6 Eosinophils % 0.1 Basophils % 0.8 Nucleated RBC % 0 Absolute Neutrophils 6.63 Absolute Lymphocytes 1.04 L Absolute Monocytes 0.13 Absolute Eosinophils 0.01 Absolute Basophils 0.06 Sodium 143 Potassium 4.3 Chloride 109 H Carbon Dioxide 25.6 Anion Gap 8.4 BUN 21 H Creatinine 1.1 Estimated GFR/1.73 m2 >= 60.00 Glucose 134 H Calcium 8.4 L Total Bilirubin 0.6 AST 20 ALT 21 Alkaline Phosphatase 76 Troponin I < 0.05 Total Protein 6.7 Albumin 3.9 COVID-19 Source Nasal/Nares SARS-CoV-2 (PCR) Negative Last Vital Signs Temp 36.0 C L 10/25/20 16:19 Pulse 76 10/25/20 16:19 Resp 18 10/25/20 16:19 BP 146/80 H 10/25/20 16:19 Pulse Ox 96 10/25/20 16:19
[2020-10-25] MEDS: methylPREDNISolone SUCC 125 MG VIAL 60 MG IVP (17:59)
[2020-10-25] MEDS: Heparin 5,000 UNITS/ML VIAL 5000 UNITS SC (18:00)
[2020-10-25] MEDS: Normal Saline Flush 10 ML SYR (18:10)
[2020-10-25] MEDS: LORazepam 0.5 MG TAB PO (21:47)
[2020-10-25] MEDS: oxyCODONE 5 MG TAB 10 MG PO (21:48)
[2020-10-25] MEDS: Nortriptyline 10 MG CAP 20 MG PO (21:49)
[2020-10-25] MEDS: Zolpidem 10 MG TAB PO (22:47)
[2020-10-26] MEDS: Patch Removal 1 EACH TD ×2 (00:01→22:49)
[2020-10-26 06:48] LABS: HCT 43.7 % (40.0-50.0); HGB 14.9 g/dL (13.5-17.5); MCHC 34.1 % (32.0-36.0); MCV 99.8 fL (80-95); MPV 10.1 fL (8.0-11.0); Platelet Count 209 10^3/uL (130-400); RBC 4.38 10^6/uL (4.36-5.78); RDW 13.2 % (11.8-14.1); WBC 12.46 10^3/uL (4.4-10.8)
[2020-10-26 07:21] VITALS: BP 132/68; PULSE 68; RESP 16; TEMP 36; O2SAT 96
[2020-10-26] MEDS: Heparin 5,000 UNITS/ML VIAL 5000 UNITS SC ×2 (08:12→16:02)
[2020-10-26] MEDS: Polyethylene Glycol 3350 17 GM PACKET PO (08:12)
[2020-10-26] MEDS: Acetaminophen 325 MG TAB 650 MG PO ×3 (08:12→19:22)
[2020-10-26] MEDS: Senna TAB 4 TAB PO (08:12)
[2020-10-26] MEDS: Lidocaine 5% Patch 1 PATCH TP (11:05)
--- NOTE | 2020-10-26 11:07 | PT.INIE ---
PT Notes Visit Reasons: Intractable Pain Physical Therapy Inpatient Initial Evaluation Date: 10/26/20 Referring Doctor: Edy Hernandez PT Orders: PT CONSULT Precautions: Fall. Standard. Patient Profile/Admitting Diagnosis: Chronic Back Pain PMHX: Medical History (Updated 10/26/20 @ 07:50 by Edy Hernandez MD) Abdominal distension Anxiety BPH (benign prostatic hyperplasia) Chronic back pain Claustrophobia Pt prefers door and window to be open when in a room. Depression Diverticulosis Essential tremor (04/30/17) Mild cognitive impairment Nausea Passive suicidal ideations Peripheral neuropathy Polycythemia Rhinitis Tubular adenoma of colon (11/28/16) Vitamin B12 deficiency Surgical History Colonoscopy - MAC (11/28/16) Repair of inguinal hernia Spinal Fusion t8-t10 Thyroid Social History/Home Situation: Live in a house with spouse DME: None currently used Subjective: Cleared by nursing to see patient and patient is agreeable to PT. Patient semi fowlers at time of consult. Objective: General Observation: Pt appears in no acute distress. Moves easily without assist and no reports of increased pain or facial grimacing. Mental Status: A&O x3 Pain: 3-4/10 at rest Vitals: BP: 144/73 seated at EOB; 138/75 following 500ft of ambulation HR: 91 SpO2: 98% at rest on RA ROM: Right Upper Extremity: Shoulder Flexion limited to 90deg. Shoulder abduction limited to 90deg. Elbow flexion WFL. Wrist flexion WFL. Opening and closing of hand WFL. Left Upper Extremity: Shoulder Flexion limited to 90deg. Shoulder abduction limited to 90deg. Elbow flexion WFL. Wrist flexion WFL. Opening and closing of hand WFL. Right Lower Extremity: Hip flexion WFL. Hip abduction WFL. Knee flexion WFL. Ankle dorsiflexion WFL. Ankle plantarflexion WFL. Left Lower Extremity: Hip flexion WFL. Hip abduction WFL. Knee flexion WFL. Ankle dorsiflexion WFL. Ankle plantarflexion WFL. Strength: Right Upper Extremity: Shoulder flexors 5/5. Shoulder abductors 4/5. Elbow flexors 4/5. Elbow extensors 4/5. Film Processing Shift Supervisor WFL. Left Upper Extremity: Shoulder flexors 5/5. Shoulder abductors 4/5. Elbow flexors 4/5. Elbow extensors 4/5. Film Processing Shift Supervisor WFL. Right Lower Extremity: Hip flexors 4/5. Hip abductors 5/5. Knee flexors 4/5. Knee extensors 5/5. Ankle dorsiflexors 5/5. Ankle plantarflexors 5/5. Left Lower Extremity: Hip flexors 4/5. Hip abductors 5/5. Knee flexors 4/5. Knee extensors 5/5. Ankle dorsiflexors 5/5. Ankle plantarflexors 5/5. Sensation: Intact as to pain and pressure on bilateral lower extremities. Bed Mobility/Transfers: Rolling: I Supine to sit: I Sit to supine: I Sit to stand: I Stand to sit: I Bed to chair: I Chair to bed: I Gait: Ambulated 500ft with I, reciprocal gait pattern, mildly reduced step length Balance: Static Sitting: I Dynamic Sitting: I Static Standing: I Dynamic Standing: I Special Tests: Mobility Limitations Standardized Measure [facility] 6 clicks Basic Mobility Inpatient Short Form: Raw Score: 24 CMS Score: 0% Informed Consent/Education: Patient instructed in purpose of PT consult and plan of care. Assessment: Patient presents with clinical presentation consistent with I mobility status within his room and on the floor with nursing supervision to ensure pt is demonstrating appropriate recognition of hospital precautions Patient is assessed as a moderate complexity based on the following: History: 75 year old male identifying person with past medical history as indicated above. Examination: Pt presents I with mobility required for safe return to home environment. Pt complains of dizziness/nausea which he feels is likely due to the medications; pt's BP readings not concerning for orthostatic hypotension. Due to pt's mobility status, pt is not appropriate for physical therapy in this setting but was recommended seeking OP PT upon discharge with referral from PCP for deconditioning. Decision Making: moderate complexity DISCHARGE RECOMMENDATIONS: Pt's demonstrated mobility status is appropriate for discharge to home environment I. TREATMENT CODE/TIME: (43 minutes), [id number] Thank you for the opportunity to participate in the care of this patient.
--- NOTE | 2020-10-26 11:42 | W.PM.PROGNOT ---
Date of Service Date of service: 10/26/20 Time of Service: 09:23 Assessment and Plan Assessment and plan (1) Left flank pain: Status: Acute Assessment and plan: Likely neuropathic. He has had an outbreak of zoster in the past and has had a zoster vaccination. No lesions noted but could be zoster still. Consider valtrex Nortriptyline QHS initiated. Oxycodone 10mg Q6H prn. Methylprednisolone 60mg IV x 1. Today; pain nearly subsided. Will continue nortriptyline and prn oxycodone. His initial pain may have been from the bolus of steroid injected at T10, T11, now calmed and the steroid has taken effect. Of note, he was on neurotin 900mg TID in the past. (2) Chronic back pain: Status: Chronic Assessment and plan: S/P steroid injection. No central back pain or pain or other findings at the injection site. Subjective Subjective Patient reports: no new complaints and afebrile Interval history since last seen: Pt endorses feeling better. He states he is able to sit in a chair with his back against the back of the chair w/o pain for the first time in years. He is tearfully happy/emotional regarding this. Exam Const General: cooperative and no acute distress Nutritional Appearance: overweight Orientation: alert and oriented x3 HENMT Head: normocephalic and atraumatic Neck Neck: full ROM Resp Effort & Inspection: normal respiratory effort Auscultation: clear to auscultation bilaterally Cardio Rate: regular rate Rhythm: regular rhythm Heart Sounds: S1 normal and S2 normal GI Inspection: normal to inspection Palpation: soft and nontender Auscultation: normal bowel sounds Back/Spine/Pelvis Back: No erythema, No ecchymosis, No back tenderness and other (Left flank with no tenderness to touch/palpation.) Extrem General: no pedal edema and no calf tenderness Psych Appearance: grossly normal Speech and Movement: speech and movement normal Affect: normal affect Objective Last Vital Signs Temp 36.0 C L 10/26/20 07:21 Pulse 68 10/26/20 07:21 Resp 16 10/26/20 07:21 BP 132/68 10/26/20 07:21 Pulse Ox 96 10/26/20 07:21 Laboratory Results - last 24 hr 10/25/20 10/25/20 10/25/20 11:15 11:15 14:25 WBC 7.90 RBC 4.63 Hgb 15.7 Hct 46.3 MCV 100.0 H MCH 33.9 H MCHC 33.9 RDW 13.5 Plt Count 208 MPV 10.1 Immature Gran % 0.4 Neutrophils % 83.9 Lymphocytes % 13.2 Monocytes % 1.6 Eosinophils % 0.1 Basophils % 0.8 Nucleated RBC % 0 Absolute Neutrophils 6.63 Absolute Lymphocytes 1.04 L Absolute Monocytes 0.13 Absolute Eosinophils 0.01 Absolute Basophils 0.06 Sodium 143 Potassium 4.3 Chloride 109 H Carbon Dioxide 25.6 Anion Gap 8.4 BUN 21 H Creatinine 1.1 Estimated GFR/1.73 m2 >= 60.00 Glucose 134 H Calcium 8.4 L Total Bilirubin 0.6 AST 20 ALT 21 Alkaline Phosphatase 76 Troponin I < 0.05 Total Protein 6.7 Albumin 3.9 COVID-19 Source Nasal/Nares SARS-CoV-2 (PCR) Negative 10/26/20 06:17 WBC 12.46 H D RBC 4.38 Hgb 14.9 Hct 43.7 MCV 99.8 H MCH 34.0 H MCHC 34.1 RDW 13.2 Plt Count 209 MPV 10.1 Immature Gran % Neutrophils % Lymphocytes % Monocytes % Eosinophils % Basophils % Nucleated RBC % Absolute Neutrophils Absolute Lymphocytes Absolute Monocytes Absolute Eosinophils Absolute Basophils Sodium Potassium Chloride Carbon Dioxide Anion Gap BUN Creatinine Estimated GFR/1.73 m2 Glucose Calcium Total Bilirubin AST ALT Alkaline Phosphatase Troponin I Total Protein Albumin COVID-19 Source SARS-CoV-2 (PCR)
[2020-10-26] MEDS: LORazepam 0.5 MG TAB PO (12:51)
[2020-10-26] MEDS: Ondansetron 4 MG/2 ML VIAL IVP (13:32)
--- NOTE | 2020-10-26 14:04 | PDOC.CMIN ---
- If Service Date Differs Date of service: 10/26/20 Time of Service: 14:04 Care Management Initial Assess REASON FOR HOSPITALIZATION:: Intractable Pain PAST MEDICAL HISTORY/PAST SURGICAL HISTORY:: Abdominal distension. Anxiety. BPH (benign prostatic hyperplasia). Chronic back pain. Claustrophobia. Pt prefers door and window to be open when in a room. Depression. Diverticulosis. Essential tremor (04/30/17). Mild cognitive impairment. Nausea. Passive suicidal ideations. Peripheral neuropathy. Polycythemia. Rhinitis. Tubular adenoma of colon (11/28/16). Vitamin B12 deficiency. Colonoscopy - MAC (11/28/16). Repair of inguinal hernia. Spinal Fusion. t8-t10. Thyroid PREVIOUS FUNCTIONAL STATUS/SOCIAL/FAMILY SUPPORTS:: Lucho resides in [facility] with his of fifty years, Priti. He reports being independent at ADLs but having to do things slowly due to chronic pain. He reports his is an excellent cook. CURRENT FUNCTIONAL STATUS:: Lucho is sitting on the side of the bed, then lays flat while talks with him. He reports being in chronic pain but not wanting to be on chronic addictive pain medications. He reports having an appointment yesterday at the [facility] where he recieved a nerve block, which later in the night swelled around the injection site. He reports feeling better today than he has in nine years and shares hope it can continue. Has patient been provided with info about the portal/API?: No Did the patient sign up for the portal?: No CODE STATUS:: Full Code INSURANCE COVERAGE / FINANCIAL ISSUES:: BC/BS. [place] MCR Replacement Policy. Medicare CURRENT HOME/COMMUNITY SERVICES/EQUIPMENT:: [facility] PRIMARY CARE PHYSICIAN:: Debi Bone POTENTIAL DISCHARGE NEEDS:: Follow up appointments. PATIENT/FAMILY EDUCATION NEEDS:: Review discharge instructions, discuss Ask Me Three. ANTICIPATED BARRIERS TO DISCHARGE:: None identified at this time. TRANSPORTATION:: Via private vehicle with his , Priti. PLAN:: Lucho continues to be closely monitored and treated. He reported working with PT today and anticipating he would discharge home tomorrow. He will transport via private vehicle with his .
[2020-10-26 16:00] VITALS: BP 128/64; PULSE 70; RESP 18; TEMP 36.8; O2SAT 96
[2020-10-26] MEDS: oxyCODONE 5 MG TAB 10 MG PO (16:02)
[2020-10-26] MEDS: Nortriptyline 10 MG CAP 20 MG PO (22:48)
[2020-10-26] MEDS: Zolpidem 10 MG TAB PO (22:48)
[2020-10-26] MEDS: Normal Saline Flush 10 ML SYR IVP (23:02)
[2020-10-26 23:25] VITALS: BP 108/62; PULSE 62; RESP 18; TEMP 33.2; O2SAT 97
[2020-10-27] MEDS: Heparin 5,000 UNITS/ML VIAL 5000 UNITS SC ×2 (00:07→08:34)
[2020-10-27 07:30] VITALS: BP 120/67; PULSE 78; RESP 17; TEMP 36.4; O2SAT 95
[2020-10-27 07:36] LABS: HCT 42.7 % (40.0-50.0); HGB 14.7 g/dL (13.5-17.5); MCH 33.8 pg (27.0-33.0); MCHC 34.4 % (32.0-36.0); MCV 98.2 fL (80-95); MPV 10.8 fL (8.0-11.0); Platelet Count 208 10^3/uL (130-400); RBC 4.35 10^6/uL (4.36-5.78); RDW 13.5 % (11.8-14.1); RDW-SD 49.4 fL; WBC 11.16 10^3/uL (4.4-10.8)
[2020-10-27] MEDS: Polyethylene Glycol 3350 17 GM PACKET PO (08:35)
[2020-10-27] MEDS: Acetaminophen 325 MG TAB 650 MG PO ×2 (08:35→14:24)
[2020-10-27] MEDS: Senna TAB 4 TAB PO (08:35)
[2020-10-27] MEDS: Lidocaine 5% Patch 1 PATCH TP (10:43)
--- NOTE | 2020-10-27 11:02 | W.PM.PROGNOT ---
Date of Service Date of service: 10/27/20 Time of Service: 11:02 Assessment and Plan Assessment and plan (1) Chronic back pain: Status: Chronic Assessment and plan: S/P steroid injection. No central back pain or pain or other findings at the injection site. pain well controlled. probably neuropathic in origin. no evidence for acute varicella/zoster. will dc home today once he has had a BM. will continue Pamelor 20 mg @ HS and lidocaine patches and prn Tramadol. follow up next week w/ Dr. Torres and w/ Dr. Carmona Qualifiers: Back pain location: thoracic back pain Back pain laterality: left Qualified Code(s): M54.6 - Pain in thoracic spine; G89.29 - Other chronic pain (2) Constipation due to pain medication: Status: Acute Assessment and plan: patient to take stool softeners i.e. colace along w/ miralax; however, acutely will give him Relistor and magnesium citrate and dulcolax to counter act the oxycodone effects on his bowels. Subjective Subjective Interval history since last seen: Patient admitted for left back pain after corticosteroid injection of T10/T11 for severe chronic low back pain w/ radiculopathy. Patient has been well controlled since he has been admitted. He has been treated w/ Pamelor 20 mg QHS along w/ lidocaine patches. He did have couple of doses of oxycodone yesterday but none this morning. However, he is complaining of constipation. No BM x 3 days. We will give him magnesium citrate and dulcolax suppository and Relistor. I think that if he is able to have a decent BM this morning then he can be discharged to follow up w/ his PCP (Dr. Torres) and his pain specialist, Dr. Carmona. I will send him home on lidocaine patches, Pamelor at night and prn Tramadol. Exam Narrative Exam Narrative: Mr. Guardado ambulated out of his room and around the nuring station w/ no loss of balance and no pain w/ ambulation. Abdomen: slight distension w/ active bowel sounds and patient reports flatus but no BM Back: evidence of healed scars from prior back surgeries. No tenderness w/ palpation of the spine. Skin over the left flank and left abdomen is sensitive to touch. I do not see any skin lesions c/w zoster although he reports hx of shingles in the past (2013 and was over the left chest at the nipple level); he reportedly was vaccinated against shingles afterwards Objective Last Vital Signs Temp 36.4 C L 10/27/20 07:30 Pulse 78 10/27/20 07:30 Resp 17 10/27/20 07:30 BP 120/67 10/27/20 07:30 Pulse Ox 95 10/27/20 07:30 Laboratory Results - last 24 hr 10/27/20 06:30 WBC 11.16 H RBC 4.35 L Hgb 14.7 Hct 42.7 MCV 98.2 H MCH 33.8 H MCHC 34.4 RDW 13.5 Plt Count 208 MPV 10.8
[2020-10-27] MEDS: Magnesium Citrate 300 ML BTL PO (11:28)
[2020-10-27] MEDS: Bisacodyl 10 MG SUPP PR (11:29)
[2020-10-27] MEDS: Methylnaltrexone 12 MG/0.6 ML VIAL SC (11:29)
[2020-10-27 15:40] VITALS: BP 111/75; PULSE 75; RESP 20; TEMP 36.8; O2SAT 97
--- NOTE | 2020-10-27 16:10 | W.PM.DS.N ---
Date of service: 10/27/20 Time of Service: 16:10 DS: Diagnosis Discharge Diagnosis (1) Chronic back pain: Status: Chronic Asessment and Plan: Rx for lidocaine patch, Pamelor 20 mg qhs, dc his oxycodone and give him Rx for Tylenol #3 one tab bid prn pain; also given Rx for Narcan prn d/t his taking lorazepam at home in addition to narcotic pain meds. (2) Constipation due to pain medication: Status: Resolved Asessment and Plan: resolved w/ Relistor 12 mg x one dose and magnesium citrate and dulcolax. Patient should use stool softeners while he is taking any narcotic pain meds. Discharge Plan Disposition Patient Disposition: HOME Condition: Good Discharge Details Reason For Visit: Intractable Pain Admit Date/Time: 10/25/20 14:30 Admit Provider: Edy Hernandez Attending Provider: Edy Hernandez Primary Care Provider: Debi Bone [facility] Course Hospital Course: See admission H&P for details of his presenting symptoms. Patient has chronic back pain and had recent steroid injections of his T10/T11 by his pain specialist when he presented w/ intractable left sided back pain. He also described swelling of his left side after the injection but none was noted by ED provider or admitting hospitalist. Patient has had no fevers, nausea or vomiting. He has complained of 3 days of constipation. He has been on oxycodone for his back pain. he was treated w/ solumedrol 60 mg IV x one dose and put on lidocaine patch and Pamelor 20 mg at night. He did get two doses of oxycodone on 10/26 but as of today he has been pain free and ambulating w/out any discomfort or loss of balance. His constipation was treated w/ magnesium citrated, dulcolax suppository and a dose of Relistor. I have discontinued his oxycodone because he did not like the way it made him feel. He will be given and Rx for Tylenol #3 for breakthrough pain and a short trial of lidocaine patches and Pamelor. He should follow up w/ his pain specialist and his PCP. Home Meds and New Rx's Prescriptions: New nortriptyline 10 mg Capsule 20 mg PO HS Qty: 7 RF: 0 lidocaine 5 % Adhesive Patch,Medicated 1 patch topical Q24H Qty: 7 RF: 0 acetaminophen-codeine 300-30 mg tablet 1 tab PO BID PRNQty: 10 RF: 0 Narcan 4 mg/actuation spray,non-aerosol 1 spray intranasal Q2-3M PRNQty: 2 RF: 0 Continued lorazepam [Ativan] 0.5 mg tablet 0.5 mg PO BID PRNRF: 0 mecobalamin (vitamin B12) 1,000 mcg tablet,disintegrating 1,000 mcg SL DAILY RF: 0 acetaminophen 500 mg tablet 1,000 mg PO TID PRNRF: 0 sennosides [Senna Laxative] 8.6 MG tablet 8.6 mg PO 4 tabs daily RF: 0 polyethylene glycol 3350 [Miralax] 17 GM powder in packet 17 gm PO PRN RF: 0 MEDICAL MARIJUANA Inhalation PRN RF: 0 levalbuterol tartrate 45 mcg/actuation HFA aerosol inhaler 15,000,000 mcg Inhalation QID PRNRF: 0 ondansetron HCl [Zofran] 4 mg tablet 4 mg PO Q8H PRNRF: 0 zolpidem 10 MG tablet 10 mg PO .QHS RF: 0 Discontinued oxycodone 5 mg tablet 5 mg PO BID MDD 2 tablets/day PRN (Reason: pain) 28 Days Qty: 56 RF: 0 Discharge Instructions Instructions: Constipation (DC), Chronic Back Pain (DC) Additional Instructions: your oxycodone has been discontinued. Tylenol #3 has been prescribed for breakthrough back pain. You have been prescribed lidocaine patch to help w/ your back pain and prescribed Pamelor to help you sleep at night. You should obtain follow up w/ your pain specialist and w/ your primary care provider. You should consider going into physical therapy to prevent back pain and to improve your mobility. Stand Alone Forms: Nursing Discharge Form Referrals: Jesse Carmona DO [OSTEOPATHIC DOCTOR] - (call the office next week for follow up of chronic back pain) Debi Bone MD [Primary Care Provider] - (call the office for follow up appointment next week) Activity:: Activity as Tolerated Equipment/Supplies:: No Equipment Needed Diet:: Normal Diet Discharge Orders Discharge Orders: Discharge Order (Routine); Ordered 10/27/20 Ordered By: Selwyn Akbar DS: Summary Time Spent with Patient providing and/or coordinating discharge services: Less than 30 minutes Status at Discharge Functional status at discharge: independent ambulation Overall status at discharge: patient is back to baseline Mental Status: mental status grossly normal Speech and Movement: speech and movement normal Mood: congruent mood Affect: normal affect Exam Narrative Exam Narrative: Mr. Guardado ambulated out of his room and around the nuring station w/ no loss of balance and no pain w/ ambulation. Abdomen: slight distension w/ active bowel sounds and patient reports flatus but no BM Back: evidence of healed scars from prior back surgeries. No tenderness w/ palpation of the spine. Skin over the left flank and left abdomen is sensitive to touch. I do not see any skin lesions c/w zoster although he reports hx of shingles in the past (2013 and was over the left chest at the nipple level); he reportedly was vaccinated against shingles afterwards Psych Mental Status: mental status grossly normal Speech and Movement: speech and movement normal Mood: congruent mood Affect: normal affect DS: Data Vitals/I&O Vitals and I&O: Vital Signs Temperature 36.8 C 10/27/20 15:40 Temperature Source Tympanic 10/27/20 15:40 Pulse 75 10/27/20 15:40 Pulse Rhythm Regular 10/27/20 08:30 Pulse 86 10/25/20 14:10 Respiratory Rate 20 10/27/20 15:40 Respiratory Effort Non-Labored 10/27/20 08:30 Respiratory Depth Normal 10/27/20 08:30 Respiratory Pattern Normal 10/27/20 08:30 Blood Pressure 111/75 10/27/20 15:40 Blood Pressure Mean 66 10/25/20 13:17 Blood Pressure Position Supine 10/25/20 11:03 Pulse Oximetry 97 10/27/20 15:40 Oxygen Delivery Method Room Air 10/27/20 15:40 Oxygen Flow Rate 0 10/27/20 15:40 Pain Level 0 10/27/20 15:40 Intake & Output 10/26/20 10/27/20 10/27/20 23:59 11:59 23:59 Intake Total Balance Intake: IV Other: Urine Appearance Clear Clear Comment pt voidiing independently in toilet. pt denies issues patient states he has been voiding independently with no problem Voiding Methods Toilet Data Completed and Pending Labs on day of discharge: Labs from last 24 hours 10/27/20 06:30 WBC 11.16 H RBC 4.35 L Hgb 14.7 Hct 42.7 MCV 98.2 H MCH 33.8 H MCHC 34.4 RDW 13.5 Plt Count 208 MPV 10.8 PFSH Medical History (Updated 10/27/20 @ 16:15 by Selwyn Akbar) Abdominal distension Anxiety BPH (benign prostatic hyperplasia) Chronic back pain Claustrophobia Pt prefers door and window to be open when in a room. Depression Diverticulosis Essential tremor (04/30/17) Mild cognitive impairment Nausea Passive suicidal ideations Peripheral neuropathy Polycythemia Rhinitis Tubular adenoma of colon (11/28/16) Vitamin B12 deficiency Surgical History Colonoscopy - MAC (11/28/16) Repair of inguinal hernia Spinal Fusion t8-t10 Thyroid Family History Father Liver cancer Mother Arthritis Social History Smoking/Tobacco Use Status: Never Smoking risk assessment performed?: Yes Alcohol Intake: never Drug use: Occasionally Substance use type: marijuana Details: Pt last used mj on 10/24/20. Household members: spouse Current gender identity: male What type of physical activity do you participate in: none and normal ROM and activity Do you feel safe at home: Yes Do you feel safe in your relationship?: Yes
== END 2020-10-27 16:34 | disposition home or self-care (01) ==
LOC: ER 11:14 → MS 16:13
PROVIDERS: Admitting Provider Family Medicine; Emergency Provider Physician Assistant; PCP Family Medicine; Visit Provider Family Medicine
DX: R10.32 Left lower quadrant pain (principal); G89.29 Other chronic pain; M54.9 Dorsalgia, unspecified; N40.1 Benign prostatic hyperplasia with lower urinary tract symptoms; R33.9 Retention of urine, unspecified; F41.9 Anxiety disorder, unspecified; F32.9 Major depressive disorder, single episode, unspecified; K57.30 Diverticulosis of large intestine without perforation or abscess without bleeding; G62.9 Polyneuropathy, unspecified; E53.8 Deficiency of other specified B group vitamins; D75.1 Secondary polycythemia; Z20.822 Contact with and (suspected) exposure to COVID-19; K59.03 Drug induced constipation; T40.605A Adverse effect of unspecified narcotics, initial encounter
CPT/HCPCS: 36415; 71275; 80053; 85027; 87635; 93005; 96365; 96366; 96375; 96376; 97162; 99285; 71046; 84484; 85025; 93010; 99217; 99225; G0378; J0131; J1644; J1885; J2405; J2930; J3010; J3490

== ENCOUNTER 2020-12-07 00:45 | Outpatient (CLI) | payer MEDICARE, SELFPAY ==
--- NOTE | 2020-12-07 | DI.MRI_ITS ---
Exam(s) MR THORACIC SPINE WO EXAM: MR THORACIC SPINE WO CLINICAL HISTORY: INTERCOSTAL NEURALGIA,G58.8. TECHNIQUE: Multiplanar multisequence MRI was performed. COMPARISON: CT CT CHEST PE CTA from 10/25/[address] CHEST PE CTA from 10/25/2020 FINDINGS: MR examination of the thoracic spine was performed according to the usual protocol. There are Harrin gton rods in place at what appear to be the T9, T11, and L1 levels. There is no significant bony sig nal abnormality or fluid collection associated with the Florez rods. The central spinal canal appears well maintained throughout. Spinal cord and conus medullaris show n ormal signal and normal diameter. There is no evidence impingement on the spinal cord. There are high signal rounded masslike findings in multiple neural foramina seen on T2 weighted imagi ng, these are likely to represent cysts, the largest measuring about 9 x 6 millimeters in diameter wh ich is located in the neural foramen on the left at the 3 4 level. There is a 5 millimeter in diamet er high signal focus in the left L4-5 neural foramen. There are high signal foci in right neural for jam at T4-5 and probably T8-T9 level as well. Because these are high signal on T2 weighted imaging, these may represent fluid but could also repres ent fat containing foci period I would request that additional imaging be obtained to include thoraci c spine MRI with T2 fat saturated imaging as well as pre and post contrast T1 fat sat imaging. Addit ionally noncontrast T1 weighted imaging should be obtained. IMPRESSION: Multiple high signal of possible masses or cysts identified as described above. Additional pre and p ost contrast MR imaging of the thoracic spine is requested to differentiate between cysts, nerve root tumors, or other etiologies of this finding. DATA REPOSITORY:
== END 2020-12-07 01:05 ==
PROVIDERS: PCP Family Medicine; Visit Provider Family Medicine
DX: G58.8 Other specified mononeuropathies (principal); R93.89 Abnormal findings on diagnostic imaging of other specified body structures
CPT/HCPCS: 72146

== ENCOUNTER 2020-12-25 08:39 | Outpatient (CLI) | payer MEDICARE, SELFPAY ==
--- NOTE | 2020-12-25 | DI.CT_ITS ---
Exam(s) CT THORACIC SPINE WO EXAM: CT THORACIC SPINE WO CLINICAL HISTORY: INTERCOSTAL NEURALGIA G58.8 SPINE SURGEON REQUESTED TO CLARIFY WHERE TECHNIQUE: COMPARISON: CT THORACIC SPINE WO CONTRAST from 05/08/2017 FINDINGS: CT examination of the thoracic spine was performed without contrast administration. Visualized portions of the lungs are clear. No mediastinal or hilar adenopathy. Tracheobronchial tr ee appears intact. No pleural effusion or pleural-based mass. No paraspinal mass identified. As noted on recent thoracic spine MRI there are Florez rods in place which have vertebral fixatio n at T9, T11 and. There is kyphotic deformity lower thoracic. There is a lordotic midthoracic. The re moderate endplate osteophytes of upper thoracic region. There are degenerative facet changes of t he lower thoracic region. There is neural foraminal narrowing on the right at T9-10, T10-11, and T11-12. There is probable melia ral foraminal narrowing at T9-10 and T10-T11 on the left. There is no significant narrowing of the central spinal canal. High signal rounded masslike foci seen on MR are not clearly appreciated by CT criteria. Pre and pos t contrast T1 fat sat MR imaging is recommended for further evaluation of these MR findings. No significant additional findings by CT. IMPRESSION: Florez rods in place. Multilevel bilateral neural foraminal narrowing of the lower thoracic spin e as described above. Contrast enhanced MR again recommended to evaluate findings identified on prior MR of December 07. RADIATION DOSE DELIVERED: 946.9mGy.cm Total DLP CTDIvol RADIATION OPTIMIZATION: All CT scans at this facility use at least one of these dose optimization te chniques: automated exposure control; mA and/or kV adjustment per patient size (includes targeted exa ms where dose is matched to clinical indication); or iterative reconstruction.
== END 2020-12-25 08:59 ==
PROVIDERS: PCP Family Medicine; Visit Provider Family Medicine
DX: M99.82 Other biomechanical lesions of thoracic region (principal); G58.8 Other specified mononeuropathies; M40.204 Unspecified kyphosis, thoracic region; M47.814 Spondylosis without myelopathy or radiculopathy, thoracic region; Z98.890 Other specified postprocedural states
CPT/HCPCS: 72128

== ENCOUNTER 2021-04-16 14:36 | Outpatient (CLI) | payer MEDICARE, SELFPAY ==
--- NOTE | 2021-04-16 10:15 | DI.RAD_ITS ---
Exam(s) XR SHOULDER LT COMPLETE 2+V EXAM: XR SHOULDER LT COMPLETE 2+V CLINICAL HISTORY: left shoulder pain. TECHNIQUE: 2D digital imaging was performed. COMPARISON: No exams were available for comparison FINDINGS: There is no evidence of fracture or dislocation nor abnormal soft tissue calcifications. There are m oderate degenerative changes in the glenohumeral joint. Mild joint space narrowing. There is also a moderate size osteophyte on the inferior articular surface of the humeral head. Bone density is nor mal. No osseous lesions. Few small degenerative subarticular cysts are noted in the humeral head. Mild degenerative changes noted in the AC joint. IMPRESSION: Degenerative changes as described above. DATA REPOSITORY: RADIATION DOSE DELIVERED:
== END 2021-04-16 14:37 | disposition home or self-care (01) ==
LOC: DIORS 14:36
PROVIDERS: PCP Family Medicine; Referring Provider Family Medicine; Visit Provider Student in an Organized Health Care Education/Training Program
DX: M25.512 Pain in left shoulder (principal); M19.012 Primary osteoarthritis, left shoulder
CPT/HCPCS: 20610; 99203; 99213; 73030; J1030

== ENCOUNTER → 2021-06-18 08:41 | Outpatient (BNVA) | payer MEDICARE, SELFPAY | PROVIDERS: PCP Family Medicine; Referring Provider Family Medicine; Visit Provider Student in an Organized Health Care Education/Training Program | DX: M75.102 Unspecified rotator cuff tear or rupture of left shoulder, not specified as traumatic (principal); M25.512 Pain in left shoulder | CPT/HCPCS: 99213 ==

== ENCOUNTER → 2021-08-07 08:24 | Outpatient (BNVA) | payer MEDICARE, SELFPAY | PROVIDERS: PCP Family Medicine; Referring Provider Family Medicine; Visit Provider Student in an Organized Health Care Education/Training Program | DX: M19.012 Primary osteoarthritis, left shoulder (principal); M75.102 Unspecified rotator cuff tear or rupture of left shoulder, not specified as traumatic | CPT/HCPCS: 99213 ==

== ENCOUNTER 2021-08-28 11:23 | Emergency (ER) | payer MEDICARE, SELFPAY ==
[2021-08-28 11:33] VITALS: BP 130/70; PULSE 74; RESP 20; TEMP 36.6; O2SAT 98
--- NOTE | 2021-08-28 12:16 | ED.GENADUL_ITS ---
Discharge Plan Disposition Patient Disposition: HOME Condition: Stable Discharge Details Clinical Impression: Balanitis Primary Care Provider: Debi Bone ED Provider: Kiesha Jara Home Meds and New Rx's Prescriptions: Continued oxycodone 10 mg tablet 10 mg PO BID PRN sennosides [Senna Laxative] 8.6 MG tablet 8.6 mg PO 4 tabs daily polyethylene glycol 3350 [Miralax] 17 GM powder in packet 17 gm PO PRN MEDICAL MARIJUANA Inhalation PRN levalbuterol tartrate 45 mcg/actuation HFA aerosol inhaler 15,000,000 mcg Inhalation QID PRN ondansetron HCl [Zofran] 4 mg tablet 4 mg PO Q8H PRN cyanocobalamin (vitamin B-12) 1,000 mcg capsule 1,000 mcg PO DAILY zolpidem 10 MG tablet 10 mg PO .QHS acetaminophen-codeine 300-30 mg tablet 1 tab PO BID PRNQty: 10 0RF naloxone [Narcan] 4 mg/actuation spray,non-aerosol 1 spray intranasal Q2-3M PRNQty: 2 0RF Rx Instructions: spray 1 dose into ONE nostril; alternate nostrils w each dose until help arrives Discharge Instructions Additional Instructions: hydrocortisone 1% over the counter twice daily for 7 days stop using lotrimin recheck in 48 hours with worsening symptoms or persistent symptoms Referrals: Hilario Bob MD [ [facility] STAFF PHYSICIAN] - Medical Decision Making Patient still has mild erythema and swelling consistent with a likely balanitis There is no evidence of phimosis or paraphimosis although patient is describing a possible paraphimosis prior to arrival He is feeling marked improvement There is no evidence of 40 years gangrene He denies any urinary symptoms He feels as though the measurement is exacerbating his symptoms, he is encouraged to discontinue to use He will use Neosporin and hydrocortisone A referral to urology was supplied Return precautions discussed and patient expressed understanding Medical Records Medical records reviewed: Yes I reviewed the patient's medical records. Lab Data Lab results reviewed: Yes I reviewed the patient's lab results. HPI General Date/Time Provider Initiated Documentation: 08/28/21 12:15 . HPI Narrative: This 76-year-old male with history of reported recent diagnosis of balanitis presents for worsening symptoms. He has been using fluconazole for the past 4 days and states causing some increased irritation and swelling. He presents today secondary to pruritus, increased swelling and pain. He denies any fever or chills. He denies history of similar symptoms in the past. He is able to urinate without difficulty reportedly. Related Data Home Medications Medication Instructions Recorded Confirmed zolpidem 10 mg tablet 10 mg PO .QHS 01/10/13 08/28/21 polyethylene glycol 3350 17 gram 17 gm PO PRN 10/10/15 08/28/21 oral powder packet (Miralax) sennosides 8.6 mg tablet (Senna 8.6 mg PO 4 tabs daily 10/10/15 08/28/21 Laxative) Medical Marijuana inhalation PRN 04/30/17 08/07/21 levalbuterol tartrate 45 15,000,000 mcg inhalation QID PRN 01/03/19 08/28/21 mcg/actuation aerosol inhaler ondansetron HCl 4 mg tablet 4 mg PO Q8H PRN 06/15/19 08/28/21 (Zofran) acetaminophen 300 mg-codeine 30 mg 1 tab PO BID PRN #10 tabs 10/27/20 08/28/21 tablet naloxone 4 mg/actuation nasal 1 spray intranasal Q2-3M PRN #2 ea 10/27/20 08/28/21 spray (Narcan) cyanocobalamin (vitamin B-12) 1,000 mcg PO DAILY 03/06/21 08/28/21 1,000 mcg capsule oxycodone 10 mg tablet 10 mg PO BID PRN 04/16/21 08/28/21 Previous Rx's Medication Instructions Recorded acetaminophen 300 mg-codeine 30 mg 1 tab PO BID PRN #10 tabs 10/27/20 tablet naloxone 4 mg/actuation nasal 1 spray intranasal Q2-3M PRN #2 ea 10/27/20 spray (Narcan) Allergies Allergy/AdvReac Type Severity Reaction Status Date / Time tramadol Allergy Severe vertigo, Unverified 08/28/21 11:36 pt was hospitalized azithromycin Allergy Intermediate Liver Unverified 08/28/21 11:36 concerns chlorpheniramine Allergy Mild Unverified 08/28/21 11:36 [From Contac Cold-Flu Day and Night] phenylephrine HCl Allergy Mild Unverified 08/28/21 11:36 [From Contac Cold-Flu Day and Night] propoxyphene HCl Allergy Mild Unverified 08/28/21 11:36 [From Wygesic] General Stated Complaint: RashLesion DEIDRA: 4 Review of Systems All systems reviewed & are unremarkable except as noted in HPI and below PFSH All Active Problems (Updated 08/28/21 @ 12:34 by TERE Sandoval) Balanitis (Acute) Left rotator cuff tear (Acute) Primary osteoarthritis, left shoulder (Acute) Chronic pain syndrome (Chronic) Pain syndrome, chronic (Chronic) Intention tremor (Acute) Anxiety with depression (Acute) Intercostal neuralgia (Acute) Chronic back pain (Chronic) Benign prostatic hyperplasia with incomplete bladder emptying (Acute) Erectile dysfunction (Acute) Left flank pain (Acute) Pre-op evaluation (Acute) Tubular adenoma of colon (Acute 11/28/16) Neuropathy (Acute 04/30/17) Memory loss (Acute 06/08/17) Essential tremor (Chronic 04/30/17) Medical History Abdominal distension Anxiety Basal cell carcinoma, face BPH (benign prostatic hyperplasia) Claustrophobia Pt prefers door and window to be open when in a room. Depression Diverticulosis Mild cognitive impairment Nausea Passive suicidal ideations Peripheral neuropathy Polycythemia Rhinitis Vitamin B12 deficiency Surgical History Colonoscopy - MAC (11/28/16) Repair of inguinal hernia Spinal Fusion t8-t10 Thyroid Family History Father Liver cancer Mother Arthritis Social History Smoking/Tobacco Use Status: Never Smoking risk assessment performed?: Yes Alcohol Intake: never Drug use: Daily Substance use type: marijuana Details: patient states he uses marijuana every night. Household members: spouse Current gender identity: male What type of physical activity do you participate in: none and normal ROM and activity Do you feel safe at home: Yes Do you feel safe in your relationship?: Yes Exam Const General: cooperative, comfortable and no acute distress Resp Effort & Inspection: normal respiratory effort Cardio Rate: regular rate GI Inspection: normal to inspection Other: non-tender Other: erythema noted to foreskin, mild swelling no phimosis or paraphimosis no testicular tenderness Skin Other: rash noted Neuro General: patient alert and patient oriented x3 Course Vital Signs Vital signs: Vital Signs Temperature 36.6 C 08/28/21 11:33 Pulse 74 08/28/21 11:33 Respiratory Rate 20 08/28/21 11:33 Blood Pressure 130/70 08/28/21 11:33 Pulse Oximetry 98 08/28/21 11:33 Temperature 36.6 C 08/28/21 11:33 Temperature Source Temporal Artery Scan 08/28/21 11:33 Pulse 74 08/28/21 11:33 Respiratory Rate 20 08/28/21 11:33 Respiratory Effort 08/28/21 11:37 Blood Pressure 130/70 08/28/21 11:33 Blood Pressure Position Supine 08/28/21 11:33 Pulse Oximetry 98 08/28/21 11:33 Oxygen Delivery Method Room Air 08/28/21 11:33 Oxygen Flow Rate 0 08/28/21 11:33 Pain Level 6 08/28/21 11:33 Comment 08/28/21 11:33
--- NOTE | 2021-08-28 12:53 | NUR.NOTE ---
Nursing Note: Referral faxed to [facility] Urology for balantitis, within 1 week.
== END 2021-08-28 12:45 | disposition home or self-care (01) ==
PROVIDERS: Emergency Provider Physician Assistant; PCP Family Medicine
DX: N48.1 Balanitis (principal)
CPT/HCPCS: 99282

== ENCOUNTER → 2021-09-11 10:45 | Outpatient (BNVA) | payer MEDICARE, SELFPAY | PROVIDERS: PCP Family Medicine; Referring Provider Family Medicine; Visit Provider Nurse Practitioner Gerontology | DX: N48.1 Balanitis (principal) | CPT/HCPCS: 99214 ==

== ENCOUNTER 2021-11-29 13:04 | Outpatient (REF) | payer MEDICARE, SELFPAY ==
[2021-11-29 15:01] LABS: Bilirubin Negative (Negative); Blood Negative (Negative); Clarity Clear (Clear); Glucose Negative (Negative); Ketones Negative (Negative); Leukocyte Esterase Negative (Negative); Nitrite Negative (Negative); Specific Gravity >= 1.030 (1.005-1.025); Urobilinogen 0.2 EU/dL (Up TO 0.2)
== END 2021-11-29 13:05 | disposition home or self-care (01) ==
LOC: NCHCN 13:04
PROVIDERS: PCP Family Medicine; Visit Provider Family Medicine
DX: N48.89 Other specified disorders of penis (principal)
CPT/HCPCS: 81003

== ENCOUNTER → 2021-12-25 08:43 | Outpatient (BNVA) | payer MEDICARE, SELFPAY | PROVIDERS: PCP Family Medicine; Referring Provider Family Medicine; Visit Provider Student in an Organized Health Care Education/Training Program | DX: M19.012 Primary osteoarthritis, left shoulder (principal); M75.102 Unspecified rotator cuff tear or rupture of left shoulder, not specified as traumatic | CPT/HCPCS: 20610; 99213; J1030 ==

== ENCOUNTER → 2022-01-28 14:22 | Outpatient (BNVA) | payer MEDICARE, SELFPAY | PROVIDERS: PCP Family Medicine; Referring Provider Family Medicine; Visit Provider Nurse Practitioner Gerontology | DX: N50.82 Scrotal pain (principal); N40.1 Benign prostatic hyperplasia with lower urinary tract symptoms; R39.14 Feeling of incomplete bladder emptying | CPT/HCPCS: 81003; 99214 ==

== ENCOUNTER → 2022-01-29 01:10 | Outpatient (CLI) | payer MEDICARE, SELFPAY ==
--- NOTE | 2022-01-29 07:00 | DI.US_ITS ---
Exam(s) US SCROTUM EXAM: US SCROTUM CLINICAL HISTORY: left scrotal pain, ? epididymal cyst,N50.82 TECHNIQUE: Ultrasound of the testes performed using grayscale, color, and Doppler imaging. COMPARISON: US US PAIN CLINIC NEEDLE GUIDANCE from 11/24/2019 FINDINGS: RIGHT HEMISCROTUM: The right testicle exhibits normal size and echo architecture with no evidence of significant intrate sticular mass. Prominent rete testis is noted, similar to the opposite side. Vascular flow was demo nstrated within the right testicle, including arterial waveforms. The epididymis appears unremarkable. There are no epididymal head cysts. There is a 2 millimeter avelina cification in the body of the epididymis. There is no ipsilateral hydrocele nor varicocele. LEFT HEMISCROTUM: The left testicle exhibits normal size and echo architecture with no evidence of significant intrates ticular mass. Prominent rete testis is noted, similar to the opposite side. Vascular flow is demons trated within the left testicle, including arterial waveforms. There is a prominent epididymal head cyst which measures 1.6 x 1.3 by 1.3 cm There is no ipsilateral hydrocele or varicocele. IMPRESSION: 1. No evidence of significant intra testicular mass nor testicular torsion. Symmetrical bilateral pr ominent rete testes noted. 2. There is a 1.6 x 1.3 cm benign epididymal head cyst on the left side. 2. No hydroceles evident. 3. No varicoceles evident DATA REPOSITORY:
== END ==
PROVIDERS: PCP Family Medicine; Visit Provider Nurse Practitioner Gerontology
DX: N50.82 Scrotal pain (principal); N50.3 Cyst of epididymis
CPT/HCPCS: 76870

== ENCOUNTER 2022-02-13 01:25 | Outpatient (CLI) | payer MEDICARE, SELFPAY ==
--- NOTE | 2022-02-13 | DI.MRI_ITS ---
Exam(s) MR THORACIC SPINE WO/W EXAM: MR THORACIC SPINE WO/W CLINICAL HISTORY: INTERCOSTAL NEURALGIA,G58.8,F/U 12/07/20 MRI TECHNIQUE: Multiplanar multisequence MRI of the thoracic spine was performed both pre and post contr ast infused sequences.. Contrast injected was 18 mL Dotarem intravenous. COMPARISON: CT CT CHEST PE CTA from 10/25/2020 MR MR THORACIC SPINE WO from 12/07/[address] THORACIC SPINE WO from 12/25/2020 FINDINGS: OSSEOUS: Posterior fusion rods are noted which are secured with bilateral intrapedicular screws at T8 , T10 and T12 levels. The relationship of the intra pedicular screws relative to the superior endpla harjit is satisfactory. However, at the T8 level the left-sided screw is more caudally angled as oppose d to parallel to the endplates. Nevertheless, it appears confined to the vertebral body. Incidental ly noted is a small intraosseous hemangioma in the posterior right side of T11 vertebral body, this m easuring 1.5 cm x 1.5 cm by 1.2 cm. A similar but smaller benign intraosseous hemangioma is seen in the superior aspect of T9 vertebral body. These findings are unchanged from the prior MRI scan of . There are no lytic osseous lesions evident. There is no signal abnormality to suggest dis citis nor osteomyelitis and there is no abnormal fluid collection. No evidence of paraspinal nor epi dural abscess. There is no evidence of central spinal canal stenosis. THORACIC SPINAL CORD: There is no abnormal signal in the cervical spinal cord and no evidence of foca l cord atrophy nor focal cord swelling. There is no evidence of syringomyelia nor significant spinal cord dysraphism. There is no evidence of obvious mass at the conus medullaris which is at the L1 lev el and the most distal tip of the conus medullaris is just beyond field view. CONTRAST ENHANCEMENT: There is no abnormal intraosseous enhancement. No abnormal enhancement in the paraspinal tissues. No abnormal enhancement in the thoracic spinal column nor in the exiting neural foramina. Findings described in the exiting neural foramina on the left side of the upper thoracic s pine are non enhancing and most probably dilated nerve root sleeves, as opposed to nerve sheath tumor s. SIGNIFICANT INDIVIDUAL LEVEL FINDINGS: At and above the T8 level there is no evidence of central rasheeda l stenosis and no foraminal stenosis. At the T7-T8 level (which is one level above the fusion) there is normal disc height and signal. No disc herniation. No central canal stenosis at this level. No evidence of foraminal stenosis on eith er side at this level.. T8-T9 level: No disc herniation. No central canal stenosis. No obvious foraminal stenosis. T9-10 level: No disc herniation or central canal stenosis. Mild bilateral foraminal stenosis. T10-11 level: Normal disc height and signal. No disc herniation. No central canal stenosis. Mild b ilateral foraminal stenosis. T11-T12 level: Normal disc height and signal. No disc herniation. No central canal stenosis. No fo raminal stenosis. Left T12-L1: Normal disc height. No disc herniation. No canal stenosis. No fora mc stenosis. PARASPINAL TISSUES: No significant masses nor fluid collections evident. IMPRESSION: 1. Posterior fusion rods are again noted extending from T8 to T12, again noted be secured by bilatera l intrapedicular screws at T8, T10, and T12 levels. 2. Previously described findings in the exiting neural foramina on the upper thoracic spinal column d o not exhibit enhancement and therefore most probably just dilated nerve root sheath sleeves, as oppo sed to nerve root tumors. 3. I feel that for best visualization of the exiting neural foramina here that additional bilateral o blique sequences can be performed through the exiting neural foraminae. This can be performed at no additional charge. 4. Unchanged benign-appearing intraosseous hemangioma is noted in superior aspects of T9 and T11 toro tebral bodies. DATA REPOSITORY:
[2022-02-13 14:31] LABS: CREATININE 1.1 mg/dL (0.70-1.30); Estimated GFR 70.44 (mL/min/1.73m2)
[2022-02-13] MEDS: Normal Saline Flush 10 ML SYR IVP (14:42)
[2022-02-13] MEDS: Gadoterate meglumine 20 ML VIAL 18 ML IVP (14:43)
== END 2022-02-13 01:45 ==
PROVIDERS: PCP Family Medicine; Visit Provider Family Medicine
DX: G58.8 Other specified mononeuropathies (principal)
CPT/HCPCS: 72157; 82565

== ENCOUNTER 2022-03-19 02:56 | Outpatient (CLI) | payer MEDICARE, SELFPAY ==
--- NOTE | 2022-03-19 10:30 | DI.NM_ITS ---
Exam(s) NM BONE SCAN WHOLE BDY W/SPECT EXAM: NM BONE SCAN WHOLE BDY W/SPECT CLINICAL HISTORY: THORACIC RADICULOPATHY M54.14. TECHNIQUE: Injected Dose: 25 mCi Tc-99m MDP Delayed Images: 2-3 hours. SPECT was performed. COMPARISON: CT CT CHEST PE CTA from 10/25/2020 FINDINGS: Symmetric axial uptake. Bilateral renal excretion is identified. No focal area of intense suspicious uptake is seen. The patient has bilateral posterior fusion rods extending from T8 through T12. Pedic le screws are seen at T8, T10 and T12. IMPRESSION: No evidence of metastatic disease. No suspicious uptake is seen in the thoracic spine. DATA REPOSITORY:
== END 2022-03-19 03:16 ==
LOC: DI 02:57
PROVIDERS: PCP Family Medicine; Visit Provider Neurological Surgery
DX: M54.14 Radiculopathy, thoracic region (principal)
CPT/HCPCS: 78306; 78830

== ENCOUNTER → 2022-06-12 13:05 | Outpatient (BNVA) | payer MEDICARE, SELFPAY | PROVIDERS: PCP Family Medicine; Referring Provider Family Medicine; Visit Provider Physical Therapy Assistant | DX: Z12.11 Encounter for screening for malignant neoplasm of colon (principal); Z80.0 Family history of malignant neoplasm of digestive organs ==

== ENCOUNTER 2022-06-23 07:42 | Day surgery (SDC) | payer MEDICARE, SELFPAY ==
--- NOTE | 2022-06-22 19:07 | PDOC.DSDIS_ITS ---
Date of service: 06/23/22 Time of Service: 09:59 Discharge Plan Disposition Patient Disposition: Home Condition: Good Discharge Details Reason For Visit: Colonoscopy Attending Provider: Domenic Vazquez Primary Care Provider: Debi Bone Home Meds and New Rx's Prescriptions: Continued oxycodone 10 mg tablet 10 mg PO BID PRN sennosides [Senna Laxative] 8.6 MG tablet 8.6 mg PO 4 tabs daily MEDICAL MARIJUANA Inhalation PRN ondansetron HCl [Zofran] 4 mg tablet 4 mg PO Q8H PRN cyanocobalamin (vitamin B-12) 1,000 mcg capsule 1,000 mcg PO DAILY nortriptyline 25 mg capsule 25 mg PO QHS capsaicin 0.1 % cream 1 applic topical BID Rx Instructions: do not wash area for at least 30 min after application zolpidem 10 MG tablet 10 mg PO .QHS acetaminophen-codeine 300-30 mg tablet 1 tab PO BID PRNQty: 10 0RF naloxone [Narcan] 4 mg/actuation spray,non-aerosol 1 spray intranasal Q2-3M PRNQty: 2 0RF Rx Instructions: spray 1 dose into ONE nostril; alternate nostrils w each dose until help arrives Discontinued polyethylene glycol 3350 17 gram/dose powder 238 g PO ONCE Qty: 238 0RF Rx Instructions: take per colonoscopy instructions bisacodyl [Dulcolax (bisacodyl)] 5 mg tablet,delayed release (DR/EC) 5 mg PO ONCE Qty: 4 0RF Rx Instructions: take per colonoscopy instructions Discharge Instructions Instructions: Diverticulosis (GEN), Diverticulosis Diet (GEN), Colorectal Polyps (GEN) Additional Instructions: Lucho, we were able to complete your colonoscopy today without any difficulty. I did find 2 polyps. One was right at your appendix, and the other was in the area of your ascending colon. I removed both of these polyps completely. I will be in touch when I have the pathology report on what types of polyps they are. Incidentally, you also have some hemorrhoids as you discussed, as well as diverticulosis. Have attached some information here regarding general management of diverticular disease. 1. If tolerated, consume a soft, low fiber diet for 1-2 days. 2. Do not drive, drink alcohol, operate machinery, make critical decisions, or do activities that require coordination or balance for 24 hours. 3. Because air was put into your colon during the procedure, expelling air from your rectum (passing gas or farting) is normal. 4. You may not have a bowel movement for 1-3 days because of the colonoscopy pr ep. This is normal. 5. Go directly to the emergency room if you notice any of the following: Develop chills (warm to touch), or if you have a thermometer and your temperature is above 101 Difficulty breathing or difficultly swallowing Persistent vomiting Severe abdominal pain, other than gas cramps Severe chest pain Black, tarry stools Any bleeding ? exceeding one tablespoon 6. Call your physician if the site where your intravenous was started becomes red, swollen, painful, and warm to touch. 7. Your physician has reviewed your pre-procedure medications. Please continue to take those medications as previously ordered. You will be given specific information/education regarding any changes to your medications before leaving. Activity:: Activity as Tolerated Diet:: As Tolerated Discharge Orders Discharge Orders: Discharge Order (Routine); Ordered 06/22/22 Ordered By: Domenic Vazquez DS: Diagnosis Discharge Diagnosis (1) Screening for colon cancer: Status: Acute Asessment and Plan: I will follow-up on pathology reports from the polyp removal
--- NOTE | 2022-06-22 19:09 | W.COLOREPORT ---
Date of service: 06/23/22 Time of Service: 10:00 Colonoscopy Report Date of procedure: 06/23/22 Pre-op diagnosis general: Screening colonoscopy Post-op diagnosis procedure note: other (Internal hemorrhoids, diverticulosis, colon polyps in the cecum and ascending colon (around 80 cm)) Procedure: Colonoscopy with polypectomy Surgeon: Domenic Vazquez Anesthesia Type: General:No Airway Estimated blood loss (mL): 10 Pathology: other (Cecal polyp, polyp at 80 cm) Complications: None Disposition: same day Indications: Lucho is a 76 year old male with a first degree relative with colon cancer who is here for a screening colonoscopy Prep: Miralax/Dulcolax Procedure Start Time: 09:14 Procedure End Time: 09:34 Retraction Time: 12 Findings: Internal hemorrhoids, diverticulosis, cecal and ascending colon polyps Procedure Description: After the induction of monitored anesthetic care, and with the patient in left lateral decubitus position, I began by performing an external anorectal exam.? Perineum and skin were normal, as was the anal verge.? There was no evidence of external hemorrhoids.? Next, I performed a digital rectal exam.? This felt normal.? Next, I advanced a colonoscope into the rectal vault.? I performed retroflexion.? There are grade 1 internal hemorrhoids.? Using insufflation, I then advanced the colonoscope beyond the rectal folds and into the sigmoid colon before advancing towards the cecum.? There was moderate sigmoid diverticulosis. the quality of the prep was adequate.? The scope was noted to be in the cecum by identification of the ileocecal valve and appendiceal orifice.? I then began withdrawing the colonoscope using repeated irrigation as necessary for full evaluation of the colonic mucosa. There was a 0.25 cm sessile polyp in the cecum. I removed this with cold forceps polypectomy. Around 80 cm from the anal verge within the ascending colon, I identified another 0.25 cm sessile polyp. ?I was able to remove this with a cold forcep polypectomy. ?I examined the site, and there was minimal bleeding. ?Once this was completed, I continued to withdraw the scope and examine the remainder of the colonic mucosa. Once the scope was withdrawn to the level of the rectum, great care was taken to examine portions of the rectal folds.? Finally, the scope was withdrawn and the patient was brought to the same-day surgery recovery unit as the anesthetic wore off. ?The findings and instructions were shared with the patient prior to discharge.
[2022-06-23 07:45] VITALS: BP 127/68; PULSE 76; RESP 16; TEMP 36.5; O2SAT 98
[2022-06-23] MEDS: Lactated Ringers 1,000 ML 80 ML IV (08:13)
--- NOTE | 2022-06-23 08:46 | ANES.PREOP_ITS ---
General Info Date of Service Date Performed: 06/23/22 Height: 5 ft 11 in Weight: 90.6 kg Body Mass Index (BMI): 27.8 Surgical Procedure: Operation Date: 06/23/22 09:20 Proposed Procedure Side Surgeon diana Vazquez MD Meds Allergies and Home Medications Allergies Allergy/AdvReac Type Severity Reaction Status Date / Time tramadol Allergy Severe vertigo, Unverified 06/23/22 07:55 pt was hospitalized azithromycin Allergy Intermediate Liver Unverified 06/23/22 07:55 concerns chlorpheniramine Allergy Mild Unknown Unverified 06/23/22 07:55 [From Contac Cold-Flu Day and Night] phenylephrine HCl Allergy Mild Unknown Unverified 06/23/22 07:55 [From Contac Cold-Flu Day and Night] propoxyphene HCl Allergy Mild Unknown Unverified 06/23/22 07:55 [From Wygesic] Home Medication Medication Instructions Recorded zolpidem 10 mg tablet 10 mg PO .QHS 01/10/13 sennosides 8.6 mg tablet (Senna 8.6 mg PO 4 tabs daily 10/10/15 Laxative) Medical Marijuana inhalation PRN 04/30/17 ondansetron HCl 4 mg tablet 4 mg PO Q8H PRN 06/15/19 (Zofran) acetaminophen 300 mg-codeine 30 mg 1 tab PO BID PRN #10 tabs 10/27/20 tablet naloxone 4 mg/actuation nasal 1 spray intranasal Q2-3M PRN #2 ea 10/27/20 spray (Narcan) cyanocobalamin (vitamin B-12) 1,000 mcg PO DAILY 03/06/21 1,000 mcg capsule oxycodone 10 mg tablet 10 mg PO BID PRN 04/16/21 capsaicin 0.1 % topical cream 1 applic topical BID 12/19/21 nortriptyline 25 mg capsule 25 mg PO QHS 12/19/21 Current Visit Medications: Current Medications Generic Name Dose Route Start Last Admin Trade Name Freq PRN Reason Stop Dose Admin Hyoscyamine Sulfate 0.125 mg 06/22/22 19:11 Hyoscyamine 0.125 Mg Sl/Oral/Chew SL 07/22/22 19:10 DIRECTED PRN Ringer's Solution 1,000 mls @ 80 mls/hr 06/23/22 06:00 06/23/22 08:13 IV 07/20/22 23:59 80 mls/hr INFUSION RY Administration IV Miscellaneous Supplies 1 each 06/23/22 06:00 Iv Access IV 07/20/22 23:59 DIRECTED RY Ondansetron HCl 4 mg 06/22/22 19:11 Ondansetron 4 Mg/2 Ml Vial IVP 07/22/22 19:10 Q4H PRN PRN Nausea / Vomiting Sodium Chloride 0 ml 06/23/22 06:00 Normal Saline Flush 10 Ml Syr IV 07/20/22 23:59 PRN PRN Sodium Chloride 0 ml 06/23/22 06:00 Normal Saline 10 Ml Vial IJ 07/20/22 23:59 DIRECTED PRN Sterile Water 0 ml 06/23/22 06:00 Water,Injection,Sterile 10 Ml Vial IJ 07/20/22 23:59 DIRECTED PRN PFSH Active Problems Active Problems: Problem Status Onset Code Essential tremor 04/30/17 G25.0 Memory loss 06/08/17 R41.3 Neuropathy 04/30/17 G62.9 Tubular adenoma of colon 11/28/16 D12.6 Chronic back pain M54.9, G89.29 Pre-op evaluation Z01.818 Left flank pain R10.9 Erectile dysfunction N52.9 Benign prostatic hyperplasia with incomplete bladder emptying N40.1, R39.14 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 Vital Signs and Lab Results Vital Signs Most Recent Vital Signs in EMR: Most Recent Vital Signs Temp Pulse Resp BP Pulse Ox 36.5 C 76 16 127/68 98 06/23/22 07:45 06/23/22 07:45 06/23/22 07:45 06/23/22 07:45 06/23/22 07:45 Lab Results Blood Type / Crossmatch: No Data to Display Complete Blood Count: No Data to Display Complete Metabolic Panel: No Data to Display Liver Function Panel: No Data to Display Coagulation Panel: No Data to Display Cardiac Panel: No Data to Display Arterial Blood Gas: No Data to Display Venous Blood Gas: No Data to Display Pancreas Panel: No Data to Display Thyroid Panel: No Data to Display Infectious Disease: No Data to Display Blood Cultures: No Data to Display Toxicology Panel: No Data to Display Imaging and Studies Imaging and Studies Study information below may be from another EMR and interpreted by another provider. Please see original notes in EMR for more complete details. EKG Summary: EKG PATIENT NAME: Lucho Guardado Jr AUNIT #: [id number] ORDERING PROVIDER: Win Staton M.D. PRIMARY CARE PROVIDER:RUFINA PRIETO MD DATE/TIME OF SERVICE: 10/25/20 110 : 1945PERFORMING LOCATION: ER APPROVED REPORT Exam: Resting ECG Reason for Exam: sob Patient Location: E HR:83 bpm ECG Measurements Heart Rate 83 AXIS IA 151 P 31 QRSd 127 QRS 70 QT 381 T241 QTc 449 Conclusion Sinus rhythm...normal P axis, V-rate 60- 99 Right bundle branch block...QRSd>120, terminal axis(90,270) Abnormal T, consider ischemia, lateral leads...T <-0.20mV, I aVL V5 V6 <Electronically signed by WIN STATON MD in [facility]> E-Sign Date: 10/25/20 E-Sign Time: 1116 ADDENDUM APPROVED REPORT Exam: Resting ECG Reason for Exam: sob Patient Location: E HR:83 bpm ECG Measurements Heart Rate 83 AXIS IA 151 P 31 QRSd 127 QRS 70 QT 381 T241 QTc 449 Conclusion Sinus rhythm...normal P axis, V-rate 60- 99 Right bundle branch block...QRSd>120, terminal axis(90,270) Abnormal T, consider ischemia, lateral leads...T <-0.20mV, I aVL V5 V6 I have reviewed and I agree with the emergency room physician's ECG interpretation. Electronically signed by: <Electronically signed by Nuria Dalal M.D. in [place]> 10/25/20 1157 Anesthesia Assessment and Plan Anesthesia History Personal History: No History of Anesthesia Complications Family History: No Family History of Anesthesia Complications Exercise Tolerance Exercise Tolerance: Metabolic Equivalents>4 Pertinent Negatives Pertinent Negatives: No Symptoms of GERD, No Major Pulmonary Symptoms or Complaints and No History of CVA/TIA Cardiac & Pulmonary Exam Cardiac Exam: Normal S1/S2 Heart Sounds Pulmonary Exam: Clear Bilateral Breath Sounds Implantable Cardiac Device Does patient have a Pacemaker or an ICD?: No Airway Exam Known Difficult Airway: No Mallampati Class: 2 Mouth Opening: Normal (> 3cm) Thyromental Distance: Greater than 3 cm Neck Range of Motion: Full ROM Neck Circumference: Normal Teeth Condition: Normal Dentition Tooth Numberin. Broken tooth ASA Classification ASA Score: ASA 2 Emergency Case?: No NPO Status NPO Status: NPO Clears >2 hours, Solids >8 hours Anesthesia Plan Resuscitation Status: Full Code Anesthesia Technique: General Anesthesia Airway Planned: Natural Airway Monitors Used: Standard Monitors
[2022-06-23 09:08] VITALS: BMI 27.8
--- NOTE | 2022-06-23 09:27 | BOWEL_PTH ---
PATIENT: Lucho Guardado JR LOC: [facility] U#:[id number] AGE/SX: 76/M ROOM: RE06/23/[address]: Domenic Vazquez MD : 1945 BED: DIS: 06/23/2022 SPEC #: [id number] RECD: 06/23/22 13:05 STATUS: JASON REQ #: [id number] LELA: 06/23/22 09:[address]: Domenic Vazquez DEPT: Surgical Specimen RECD BY: Kiesha Steele ENTERED: 06/23/22 13:07 SP TYPE: Bowel OTHR DR: Debi Bone Tissues: 1 - BIOPSY BOWEL 2 - BIOPSY BOWEL Procedures: GROSS AND MICRO LEVEL 4 Comments: [id number]
[2022-06-23 09:43] VITALS: BP 80/56; PULSE 70; RESP 16; TEMP 36.9; O2SAT 85
[2022-06-23 10:10] VITALS: BP 112/65; PULSE 60; RESP 18; TEMP 36.5; O2SAT 96
--- NOTE | 2022-06-23 10:21 | W.ANESPOSTOP ---
Postoperative Evaluation Date, Time and Location Date Performed: 06/23/22 Time Performed: 10:21 Patient Location: Day Surgery Unit Vital Signs Most Recent Imported Vital Signs: Most Recent Vital Signs Temp Pulse Resp BP Pulse Ox 36.5 C 60 18 112/65 96 06/23/22 10:10 06/23/22 10:10 06/23/22 10:10 06/23/22 10:10 06/23/22 10:10 Pain Score Most Recent Pain Score: Most Recent Pain Score Pain Level 0 06/23/22 10:10 Assessment Mental Status: Awake (Alert & Oriented to Patient Baseline) Airway and Respiratory Function: Patent airway with normal (patient baseline) respiratory exam Cardiovascular Function: Hemodynamically Stable Hydration Status: Adequately Hydrated Nausea & Vomiting: No Nausea or Vomiting Pain: Pt. Denies Any Pain Peripheral Nerve Block: Patient did not receive a nerve block Postoperative Comments:: Patient with some desaturations at end of case, O2 dependency in DSU. Assessed and found to be rhonchorous with an expiratory wheeze L>R. Ordered incentive spirometry which greatly increased SPO2 and allowed for discontinuation of O2 to RA. Discussed potential aspiration with patient, aspiration discharge instructions added. Patient cleared home for discharge, all questions answered.
== END 2022-06-23 10:59 | disposition home or self-care (01) ==
PROVIDERS: PCP Family Medicine; Visit Provider Surgery
PROC: 0DJD8ZZ Inspection of Lower Intestinal Tract, Via Natural or Artificial Opening Endoscopic (ICD-10-PCS; CPT 45378; principal; 2022-06-23 09:15)
DX: Z12.11 Encounter for screening for malignant neoplasm of colon (principal); Z86.010 Personal history of colon polyps; D12.4 Benign neoplasm of descending colon; K57.30 Diverticulosis of large intestine without perforation or abscess without bleeding; K64.8 Other hemorrhoids; Z80.0 Family history of malignant neoplasm of digestive organs; D12.0 Benign neoplasm of cecum
CPT/HCPCS: 45380; 88305

== ENCOUNTER 2023-04-10 11:14 | Emergency (ER) | payer MEDICARE, SELFPAY ==
[2023-04-10] VITALS (31 sets, daily range): BP systolic 128–157; BP diastolic 43–67; PULSE 63–79; RESP 8–55; TEMP 36.6; O2SAT 93–98
--- NOTE | 2023-04-10 11:30 | DI.CT_ITS ---
Exam(s) CT CHEST/ABD/PEL W EXAM: CT CHEST/ABD/PEL W CLINICAL HISTORY: R sided posterior rib pain s/p fall TECHNIQUE: Imaging Protocol: Axial computed tomography images with coronal and sagittal reformatted images were created and reviewed CONTRAST MATERIAL: Intravenous: Omnipaque 350 contrast volume:100 mL Oral: No COMPARISON: CT CT ABDOMEN PELVIS WO/W from 06/17/[address] CHEST PE CTA from 10/25/2020 FINDINGS: CHEST: Tracheobronchial tree: Patent where visualized. Pulmonary parenchyma: There is dependent atelectasis in the lung bases. No architectural distortion. Visualized thyroid gland: Unremarkable. Mediastinum and Di: No dominant adenopathy or fluid collection. The esophagus is unremarkable. Pleura: No effusion or pneumothorax. Heart: Mild cardiomegaly. Coronary artery calcifications are present. No pericardial effusion. Pulmonary arteries: Due to the timing of the bolus, the pulmonary arteries are inadequately opacified for evaluation of pulmonary emboli. No large central pulmonary embolus is seen. Aorta: Thoracic aorta non-dilated. Mild atherosclerotic calcification. No evidence of dissection. Lymph nodes: Within normal limits. Soft tissues: Unremarkable. Bones:Within normal limits for the patient's age. There is a minimally displaced fracture of the pos terior aspect of the right 10th rib. There is a nondisplaced fracture involving the right posterior 8th and 9th ribs. There has been interval removal of the posterior spinal rods in the lower thoracic and upper lumbar spine. ABDOMEN: Liver: Normal density. No measurable mass. Portal, Superior Mesenteric, and Splenic Veins: Unremarkable. Gallbladder and Biliary Tract: Cholelithiasis. There is no biliary ductal dilatation. Pancreas: There is a 1.4 cm mass in the pancreatic tail which shows peripheral enhancement. Spleen: Normal. Adrenals: No masses seen. Kidneys: Normal size, contour and axis. No radiodense stones or obstructive uropathy. Right renal cys ts. No follow-up is recommended. Abdominal Aorta: Abdominal portion non-dilated. Atherosclerotic calcification is present. Bowel: There is diverticulosis of the colon without evidence of acute diverticulitis. There is no ev idence of bowel obstruction or bowel wall thickening. There is a duodenal diverticulum adjacent to t he pancreatic head. There is no evidence of appendicitis. Peritoneal Cavity: No ascites, collection or mesenteric inflammatory response. No free air. Lymph Nodes: Within normal limits. Bones: Within normal limits for the patient's age. Soft Tissues: Unremarkable. PELVIS: Bladder: Symmetric distention, no gross wall thickening. Reproductive Organs: The prostate gland is enlarged. Lymph Nodes: Within normal limits. Bones: Within normal limits. IMPRESSION: 1. Nondisplaced fractures involving the posterior aspects of the right 8th and 9th ribs. Mildly disp laced fracture involving the posterior aspect of the right 10th rib. No pneumothorax. 2. No abdominal or pelvic organ injury. 3. 1.4 cm pancreatic tail mass. MRI without and with contrast is recommended for further evaluation. 4. Enlarged prostate gland. Unexpected findings RADIATION DOSE DELIVERED: 1,547.78mGy.cm Total DLP DATA REPOSITORY: All CT scans at this facility are submitted to the National Radiology Data Registry (NRDR) Dose Index Registry (DIR) with the [employer] (A[employer]). RADIATION OPTIMIZATION: All CT scans at this facility use at least one of these dose optimization te chniques: automated exposure control; mA and/or kV adjustment per patient size (includes targeted exa ms where dose is matched to clinical indication); or iterative reconstruction.
--- NOTE | 2023-04-10 11:30 | DI.CT_ITS ---
Exam(s) CT HEAD CERVICAL SPINE WO EXAM: CT HEAD CERVICAL SPINE WO CLINICAL HISTORY: hit head in fall from 3 steps up (on ice). TECHNIQUE: Imaging Protocol: Axial computed tomography images with coronal and sagittal reformatted images were created and reviewed COMPARISON: No exams were available for comparison FINDINGS: CT Head: Ventricles and Extra axial spaces: Normal in size and morphology for the patient's age. Hemorrhage: None. Cerebral parenchyma: There are areas of decreased attenuation in the white matter consistent with sma ll vessel ischemic disease. Midline shift: None. Brainstem/Cerebellum: Normal. Calvarium: Normal. Visualized Paranasal sinuses/Mastoids: Clear. Soft Tissues: Unremarkable. CT Cervical Spine: Bones: No acute fracture or subluxation. Age-appropriate degenerative changes are seen in the spine. There is straightening of the normal cervical lordosis. This may be due to muscle spasm or patient positioning. Soft Tissues: Unremarkable. Lung Apices: Clear. IMPRESSION: 1. No acute intracranial process. 2. No acute fracture or subluxation in the cervical spine. RADIATION DOSE DELIVERED: 1,434.23mGy.cm Total DLP DATA REPOSITORY: All CT scans at this facility are submitted to the National Radiology Data Registry (NRDR) Dose Index Registry (DIR) with the [employer] (A[employer]). RADIATION OPTIMIZATION: All CT scans at this facility use at least one of these dose optimization te chniques: automated exposure control; mA and/or kV adjustment per patient size (includes targeted exa ms where dose is matched to clinical indication); or iterative reconstruction.
--- NOTE | 2023-04-10 11:42 | W.ED.GENAD ---
Discharge Plan Disposition Patient Disposition: Home Condition: Stable Discharge Details Clinical Impression: Multiple rib fractures Primary Care Provider: Debi Bone ED Provider: Kathleen Borja Home Meds and New Rx's Prescriptions: New lidocaine 5 % adhesive patch,medicated 1 patch topical DAILY Qty: 15 0RF Rx Instructions: leave on most painful area for up to 12 hrs ibuprofen 600 mg tablet 600 mg PO Q6H PRNQty: 20 0RF Continued oxycodone 10 mg tablet 10 mg PO BID PRN sennosides [Senna Laxative] 8.6 MG tablet 8.6 mg PO 4 tabs daily MEDICAL MARIJUANA 3 inh Inhalation PRN ondansetron HCl [Zofran] 4 mg tablet 4 mg PO Q8H PRN cyanocobalamin (vitamin B-12) 1,000 mcg capsule 1,000 mcg PO DAILY nortriptyline 25 mg capsule 25 mg PO QHS capsaicin 0.1 % cream 1 applic topical BID Rx Instructions: do not wash area for at least 30 min after application zolpidem 10 MG tablet 10 mg PO .QHS acetaminophen-codeine 300-30 mg tablet 1 tab PO BID PRNQty: 10 0RF naloxone [Narcan] 4 mg/actuation spray,non-aerosol 1 spray intranasal Q2-3M PRNQty: 2 0RF Rx Instructions: spray 1 dose into ONE nostril; alternate nostrils w each dose until help arrives duloxetine 60 mg capsule,delayed release(DR/EC) 60 mg PO DAILY Patient Comments: TAKE ONE CAPSULE BY MOUTH EVERY DAY Discharge Instructions Instructions: Rib Fracture (ED) Additional Instructions: Please use incentive spirometer every 1-2 hours while awake until your symptoms have resolved Use lidocaine patch on in the morning off in the evening to the area of most pain Can continue your home pain medications as directed if needed add ibuprofen 600 mg 4 times daily in between for breakthrough pain You have been given a rib block which should last 2 to 4 days to help you get through the worst of your symptoms Referrals: Debi Bone MD [Primary Care Provider] - Discharge Data Discharge Date/Time-TO BE ENTERED AT DEPARTURE: 04/10/23 17:09 HPI <Bonnie Purcell - Last Filed: 04/10/23 15:56> General Date/Time Provider Initiated Documentation: 04/10/23 11:39. HPI Narrative: Lucho is a 77-year-old male with history of BPH and mild cognitive impairment who presents to the emergency department today for evaluation of right posterior rib pain after fall. He reports that he was walking up the stairs after taking his dog out 2 nights ago, slipped and fell straight back onto his back on the ice. He was able to walk after incident, says he had a mild headache the day after but none since then. He says he has been spending most the last 2 days laying on the floor due to the discomfort. He denies dizziness, vision changes, vomiting, neck pain, back pain other than the pain, distal numbness/tingling/leg weakness. Change in bowel or bladder function, saddle anesthesia. He is not on any blood thinners. Related Data Home Medications Medication Instructions Recorded Confirmed zolpidem 10 mg tablet 10 mg PO .QHS 01/10/13 04/10/23 sennosides 8.6 mg tablet (Senna 8.6 mg PO 4 tabs daily 10/10/15 04/10/23 Laxative) Medical Marijuana 3 inh inhalation PRN 04/30/17 04/10/23 ondansetron HCl 4 mg tablet 4 mg PO Q8H PRN 06/15/19 04/10/23 (Zofran) acetaminophen 300 mg-codeine 30 mg 1 tab PO BID PRN #10 tabs 10/27/20 04/10/23 tablet naloxone 4 mg/actuation nasal 1 spray intranasal Q2-3M PRN #2 ea 10/27/20 04/10/23 spray (Narcan) cyanocobalamin (vitamin B-12) 1,000 mcg PO DAILY 03/06/21 04/10/23 1,000 mcg capsule oxycodone 10 mg tablet 10 mg PO BID PRN 04/16/21 04/10/23 capsaicin 0.1 % topical cream 1 applic topical BID 12/19/21 04/10/23 nortriptyline 25 mg capsule 25 mg PO QHS 12/19/21 04/10/23 duloxetine 60 mg capsule,delayed 60 mg PO DAILY 04/10/23 04/10/23 release ibuprofen 600 mg tablet 600 mg PO Q6H PRN #20 tabs 04/10/23 lidocaine 5 % topical patch 1 patch topical DAILY #15 ea 04/10/23 Previous Rx's Medication Instructions Recorded acetaminophen 300 mg-codeine 30 mg 1 tab PO BID PRN #10 tabs 10/27/20 tablet naloxone 4 mg/actuation nasal 1 spray intranasal Q2-3M PRN #2 ea 10/27/20 spray (Narcan) ibuprofen 600 mg tablet 600 mg PO Q6H PRN #20 tabs 04/10/23 lidocaine 5 % topical patch 1 patch topical DAILY #15 ea 04/10/23 Allergies Allergy/AdvReac Type Severity Reaction Status Date / Time tramadol Allergy Severe vertigo, Unverified 04/10/23 11:35 pt was hospitalized azithromycin Allergy Intermediate Liver Unverified 04/10/23 11:35 concerns chlorpheniramine Allergy Mild Unknown Unverified 04/10/23 11:35 [From Contac Cold-Flu Day and Night] phenylephrine HCl Allergy Mild Unknown Unverified 04/10/23 11:35 [From Contac Cold-Flu Day and Night] propoxyphene HCl Allergy Mild Unknown Unverified 04/10/23 11:35 [From Wygesic] General Stated Complaint: Trauma DEIDRA: 3 Review of Systems <Bonnie Alberto Branden Binh [employer] Filed: 04/10/23 15:56> Narrative: see HPI Exam <Bonnie Mancillarahimi [employer] Filed: 04/10/23 15:56> Const General: healthy appearing HENMT Head: normal to inspection Ears: hearing grossly normal bilaterally General nose exam: external nose normal and no epistaxis Face and sinus: normal facial exam Mouth: oral mucosae normal Eyes General: appearance normal, both eyes and all related structures Pupils: PERRL EOM: EOM intact bilaterally Chest Chest: no crepitus and tenderness rib (R posterior) Resp Effort & Inspection: normal respiratory effort and able to speak in complete sentences Auscultation: clear to auscultation bilaterally Cardio Rate: regular rate Rhythm: regular rhythm GI Inspection: normal to inspection Palpation: soft and nontender Skin General skin exam: no rashes or lesions noted Lesions: no lesions Trauma: no lacerations or abrasions Wounds: no wounds Neuro General: patient alert and patient awake Cranial Nerves: CN's II-XI intact bilaterally Cognition: normal cognition Speech: speech normal Motor: muscle tone normal throughout and strength 5/5 throughout Sensory Exam: no sensory deficits noted Course <Bonnie Alberto Branden Gold - Last Filed: 04/10/23 15:56> Vital Signs Vital signs: Vital Signs Temperature 36.6 C 04/10/23 11:12 Pulse 77 04/10/23 11:12 Respiratory Rate 20 04/10/23 11:12 Blood Pressure 151/63 H 04/10/23 11:12 Pulse Oximetry 96 04/10/23 11:12 Temperature 36.6 C 04/10/23 11:12 Temperature Source Oral 04/10/23 11:12 Pulse 77 04/10/23 11:12 Respiratory Rate 20 04/10/23 11:12 Respiratory Effort Normal, Non-Labored 04/10/23 11:30 Respiratory Depth Normal 04/10/23 11:30 Respiratory Pattern Normal 04/10/23 11:30 Blood Pressure 151/63 H 04/10/23 11:12 Blood Pressure Position Supine 04/10/23 11:12 Pulse Oximetry 96 04/10/23 11:12 Oxygen Delivery Method Room Air 04/10/23 11:12 Oxygen Flow Rate 0 04/10/23 11:12 Pain Level 8 04/10/23 11:30 Comment pt states pain with movement OK at rest 04/10/23 11:12 Lab/Test Results Lab/Test Results: Laboratory Tests Range/Units 04/10/23 04/10/23 11:51 14:58 WBC (4.4-10.8) 10^3/uL 8.02 RBC (4.36-5.78) 10^6/uL 4.33 L Hgb (13.5-17.5) g/dL 15.4 Hct (40.0-50.0) % 44.2 MCV (80-95) fL 102 H MCH (27.0-33.0) pg 35.6 H MCHC (32.0-36.0) % 34.8 RDW (11.8-14.1) % 14.1 Plt Count (130-400) 10^3/uL 206 MPV (8.0-11.0) fL 10.2 Immature Gran % 0.5 Neutrophils % 64.1 Lymphocytes % 21.3 Monocytes % 10.5 Eosinophils % 2.2 Basophils % 1.4 Nucleated RBC % (0.0-0.3) % 0.0 Absolute Neutrophils (1.2-6.7) 10^3/uL 5.14 Absolute Lymphocytes (1.2-3.4) 10^3/uL 1.71 Absolute Monocytes (0.1-0.8) 10^3/uL 0.84 H Absolute Eosinophils (0.0-0.7) 10^3/uL 0.18 Absolute Basophils (0.0-0.2) 10^3/uL 0.11 Sodium (136-145) mmol/L 142 Potassium (3.5-5.1) mmol/L 4.1 Chloride (98-107) mmol/L 107 Carbon Dioxide (21.0-32.0) mmol/L 27.8 Anion Gap (3-11) mmol/L 7.2 BUN (7-18) mg/dL 23 H Creatinine (0.70-1.30) mg/dL 1.1 Est GFR (CKD-EPI 2020) (mL/min/1.73m2) 70.01 Glucose (74-106) mg/dL 121 H Calcium (8.5-10.1) mg/dL 8.5 Magnesium (1.8-2.4) mg/dL 2.0 Total Bilirubin (0.2-1.0) mg/dL 0.6 AST (15-37) U/L 26 ALT (16-63) U/L 32 Alkaline Phosphatase (46-116) U/L 91 Creatine Kinase (39-308) U/L 126 Total Protein (6.4-8.2) g/dL 6.1 L Albumin (3.4-5.0) g/dL 3.4 Medical Decision Making <Bonnie Johnsonhimi Binh - Last Filed: 04/10/23 15:56> Lucho is a 77-year-old male with history of BPH and mild cognitive impairment who presents to the emergency department today for evaluation of right posterior rib pain after fall. He reports that he was walking up the stairs after taking his dog out 2 nights ago, slipped and fell straight back onto his back on the ice. He was able to walk after incident, says he had a mild headache the day after but none since then. He says he has been spending most the last 2 days laying on the floor due to the discomfort. He denies dizziness, vision changes, vomiting, neck pain, back pain other than the pain, distal numbness/tingling/leg weakness. Change in bowel or bladder function, saddle anesthesia. He is not on any blood thinners. Physical exam remarkable for tenderness to palpation of right lower posterior ribs. Easy work of breathing, lung sounds clear bilaterally. Normal heart sounds. Moving all extremities equally. Full painless range of motion to neck. PERRL, EOMs intact. No dental damage noted. DDx includes but is not limited to fracture, contusion, kidney or splenic laceration, other solid or hollow organ injury, intracranial hemorrhage, mild concussion I independently interpreted the following tests: CBC and CMP reassuring. CT of chest remarkable for Discussed case with hospitalist Dr. Akbar. He recommends anesthesia consult for nerve block and anti-inflammatories at home, as hospitalization is not in the best interest of the patient. Imaging Data Radiologic Study: Radiologist's impression: Exam(s) CT HEAD CERVICAL SPINE WO EXAM: CT HEAD CERVICAL SPINE WO CLINICAL HISTORY: hit head in fall from 3 steps up (on ice). TECHNIQUE: Imaging Protocol: Axial computed tomography images with coronal and sagittal reformatted images were created and reviewed COMPARISON: No exams were available for comparison FINDINGS: CT Head: Ventricles and Extra axial spaces: Normal in size and morphology for the patient's age. Hemorrhage: None. Cerebral parenchyma: There are areas of decreased attenuation in the white matter consistent with small vessel ischemic disease. Midline shift: None. Brainstem/Cerebellum: Normal. Calvarium: Normal. Visualized Paranasal sinuses/Mastoids: Clear. Soft Tissues: Unremarkable. CT Cervical Spine: Bones: No acute fracture or subluxation. Age-appropriate degenerative changes are seen in the spine. There is straightening of the normal cervical lordosis. This may be due to muscle spasm or patient positioning. Soft Tissues: Unremarkable. Lung Apices: Clear. IMPRESSION: 1. No acute intracranial process. 2. No acute fracture or subluxation in the cervical spine. Lab Data Lab results narrative: Laboratory Tests Range/Units 04/10/23 11:51 WBC (4.4-10.8) 10^3/uL 8.02 RBC (4.36-5.78) 10^6/uL 4.33 L Hgb (13.5-17.5) g/dL 15.4 Hct (40.0-50.0) % 44.2 MCV (80-95) fL 102 H MCH (27.0-33.0) pg 35.6 H MCHC (32.0-36.0) % 34.8 RDW (11.8-14.1) % 14.1 Plt Count (130-400) 10^3/uL 206 MPV (8.0-11.0) fL 10.2 Immature Gran % 0.5 Neutrophils % 64.1 Lymphocytes % 21.3 Monocytes % 10.5 Eosinophils % 2.2 Basophils % 1.4 Nucleated RBC % (0.0-0.3) % 0.0 Absolute Neutrophils (1.2-6.7) 10^3/uL 5.14 Absolute Lymphocytes (1.2-3.4) 10^3/uL 1.71 Absolute Monocytes (0.1-0.8) 10^3/uL 0.84 H Absolute Eosinophils (0.0-0.7) 10^3/uL 0.18 Absolute Basophils (0.0-0.2) 10^3/uL 0.11 Sodium (136-145) mmol/L 142 Potassium (3.5-5.1) mmol/L 4.1 Chloride (98-107) mmol/L 107 Carbon Dioxide (21.0-32.0) mmol/L 27.8 Anion Gap (3-11) mmol/L 7.2 BUN (7-18) mg/dL 23 H Creatinine (0.70-1.30) mg/dL 1.1 Est GFR (CKD-EPI 2020) (mL/min/1.73m2) 70.01 Glucose (74-106) mg/dL 121 H Calcium (8.5-10.1) mg/dL 8.5 Magnesium (1.8-2.4) mg/dL 2.0 Total Bilirubin (0.2-1.0) mg/dL 0.6 AST (15-37) U/L 26 ALT (16-63) U/L 32 Alkaline Phosphatase (46-116) U/L 91 Total Protein (6.4-8.2) g/dL 6.1 L Albumin (3.4-5.0) g/dL 3.4 Quality:SDOH Health Related Social Needs: No Data to Display <Kathleen Borja NP - Last Filed: 04/10/23 22:08> Lucho is a 77-year-old male with history of BPH and mild cognitive impairment who presents to the emergency department today for evaluation of right posterior rib pain after fall. He reports that he was walking up the stairs after taking his dog out 2 nights ago, slipped and fell straight back onto his back on the ice. He was able to walk after incident, says he had a mild headache the day after but none since then. He says he has been spending most the last 2 days laying on the floor due to the discomfort. He denies dizziness, vision changes, vomiting, neck pain, back pain other than the pain, distal numbness/tingling/leg weakness. Change in bowel or bladder function, saddle anesthesia. He is not on any blood thinners. Physical exam remarkable for tenderness to palpation of right lower posterior ribs. Easy work of breathing, lung sounds clear bilaterally. Normal heart sounds. Moving all extremities equally. Full painless range of motion to neck. PERRL, EOMs intact. No dental damage noted. DDx includes but is not limited to fracture, contusion, kidney or splenic laceration, other solid or hollow organ injury, intracranial hemorrhage, mild concussion I independently interpreted the following tests: CBC and CMP reassuring. CT of chest remarkable for Discussed case with hospitalist Dr. Akbar. He recommends anesthesia consult for nerve block and anti-inflammatories at home, as hospitalization is not in the best interest of the patient. Care and report of patient has been received by off going nurse practitioner. Case has been reviewed the patient has received his rib block and has safely been reambulated. His pain is controlled and he is stable for discharge to home he is oxygenating well on room air Medical Records Medical records reviewed: Yes I reviewed the patient's medical records. [facility] <Bonnie Purcell - Last Filed: 04/10/23 15:56> All Active Problems (Updated 04/10/23 @ 16:52 by Kathleen Borja NP) Multiple rib fractures (Acute) Essential tremor (Chronic 04/30/17) Memory loss (Acute 06/08/17) Neuropathy (Acute 04/30/17) Tubular adenoma of colon (Acute 06/2022) 2022 Chronic back pain (Chronic) Pre-op evaluation (Acute) Left flank pain (Acute) Erectile dysfunction (Acute) Benign prostatic hyperplasia with incomplete bladder emptying (Acute) Intercostal neuralgia (Acute) Anxiety with depression (Acute) Intention tremor (Acute) Pain syndrome, chronic (Chronic) Chronic pain syndrome (Chronic) Primary osteoarthritis, left shoulder (Acute) 40 mg subacromial injection: 12/25/2021; 04/16/2021 Left rotator cuff tear (Acute) Screening for colon cancer (Acute) Medical History (Updated 04/10/23 @ 16:52 by Kathleen Borja NP) PAC (premature atrial contraction) nursing home (current) use of non-steroidal anti-inflammatories (nsaid) Cannabis use disorder Basal cell carcinoma, face Claustrophobia Pt prefers door and window to be open when in a room. Passive suicidal ideations Abdominal distension Nausea Rhinitis Diverticulosis Depression Anxiety Polycythemia Vitamin B12 deficiency BPH (benign prostatic hyperplasia) Peripheral neuropathy Mild cognitive impairment Surgical History Hx of spinal surgery Metal rods removed from spine 05/19/22 Thyroid Spinal Fusion t8-t10 Repair of inguinal hernia Colonoscopy - MAC (11/28/16) Family History Father Liver cancer Mother Arthritis Social History (Updated 06/13/22 @ 11:51 by TERE Barboza) Smoking/Tobacco Use Status: Never Smoking risk assessment performed?: Yes Alcohol Intake: former Drug use: Daily Substance use type: marijuana Details: patient states he uses marijuana every night. Household members: spouse Current gender identity: male What type of physical activity do you participate in: none and normal ROM and activity Do you feel safe at home: Yes Do you feel safe in your relationship?: Yes Sign Out <Bonnie Purcell - Last Filed: 04/10/23 15:56> Sign Out Data: Sign Out Comment: 77-year-old male, slipped and fell down stairs flat onto his back 2 days ago. Reporting posterior right lower rib pain. Fractures noted to posterior right ribs 8, 9, and 10. Anesthesia performed a regional block, with good effect. Recommend reassessment and discharge home, patient is comfortable with plan of care. Last updated by Bonnie Higuera at 04/10/23 16:39
[2023-04-10] MEDS: Acetaminophen 325 MG TAB 650 MG PO (11:46)
[2023-04-10] MEDS: Lidocaine 5% Patch 1 PATCH TP (11:46)
[2023-04-10 11:56] LABS: Abs Immature Grans 0.04 10^3/uL (0.0-0.06); Absolute Basophil Count 0.11 10^3/uL (0.0-0.2); Absolute Eosinophil Count 0.18 10^3/uL (0.0-0.7); Absolute Lymphocyte Count 1.71 10^3/uL (1.2-3.4); Absolute Monocyte Count 0.84 10^3/uL (0.1-0.8); Absolute Neutrophil Count 5.14 10^3/uL (1.2-6.7); Basophils % 1.4; Eosinophils % 2.2; HCT 44.2 % (40.0-50.0); HGB 15.4 g/dL (13.5-17.5); Immature Grans % 0.5; Lymphocytes % 21.3; MCH 35.6 pg (27.0-33.0); MCHC 34.8 % (32.0-36.0); MCV 102 fL (80-95); MPV 10.2 fL (8.0-11.0); Monocytes % 10.5; Neutrophils % 64.1; Platelet Count 206 10^3/uL (130-400); RBC 4.33 10^6/uL (4.36-5.78); RDW 14.1 % (11.8-14.1); RDW-SD 53.9 fL; WBC 8.02 10^3/uL (4.4-10.8)
[2023-04-10 12:10] LABS: ALT 32 U/L (16-63); AST 26 U/L (15-37); Albumin 3.4 g/dL (3.4-5.0); Alkaline Phosphatase 91 U/L (46-116); Anion Gap 7.2 mmol/L (3-11); BUN 23 mg/dL (7-18); Bilirubin, Total 0.6 mg/dL (0.2-1.0); CO2 27.8 mmol/L (21.0-32.0); CREATININE 1.1 mg/dL (0.70-1.30); Calcium 8.5 mg/dL (8.5-10.1); Chloride 107 mmol/L (98-107); Estimated GFR 70.01 (mL/min/1.73m2); Glucose 121 mg/dL (74-106); Potassium 4.1 mmol/L (3.5-5.1); Sodium 142 mmol/L (136-145); Total Protein 6.1 g/dL (6.4-8.2)
[2023-04-10] MEDS: Omnipaque 350 MG/ML 100 ML BTL IJ (12:35)
[2023-04-10] MEDS: Normal Saline - Diluent 50 ML VIAL IJ (12:37)
[2023-04-10] MEDS: Ketorolac 15 MG/ML VIAL IVP (14:58)
[2023-04-10 15:17] LABS: Creatine Kinase 126 U/L (39-308)
--- NOTE | 2023-04-10 15:45 | RT.EKG_ITS ---
APPROVED REPORT Exam: Resting ECG Reason for Exam: Rhythm change noted on telemetry Patient Location: E HR:65 bpm ECG Measurements Heart Rate 65 AXIS IA 150 P -7 QRSd 139 QRS 61 QT 474 T 215 QTc 493 Conclusion Sinus rhythm...normal P axis, V-rate 60- 99 Ventricular premature complex...V complex w/ short R-R interval Right bundle branch block...QRSd>120, terminal axis(90,270) Abnrm T, consider ischemia, anterolateral lds...T <-0.20mV, I aVL V2-V6 Normal sinus rhythm at a rate of 65. Right bundle branch block pattern. Difficult to interpret with significant artifact in leads II and III. Chest wall leads with T wave inversions. IA within mikayla l limits. QTc within normal limits. Compared to prior dated 3 years ago right bundle branch block i s persistent. No acute injury pattern within limitations of interpretation.
--- NOTE | 2023-04-10 16:02 | W.ANESNERVE ---
Nerve Block Single Injection Procedure Date and Time Date Performed: 04/10/23 Procedure Start: 15:15 Location Where Procedure Performed Procedure Location: Emergency Department Reason Performed: Acute Pain Management Pain Diagnosis: Rib Pain Requesting Provider: Bonnie Purcell Timeout Performed Timeout Performed: Yes Monitoring Used ECG, Blood Pressure, SpO2 and See EMR for corresponding vital signs Sterility Sterility: Hand Hygiene, Surgical Cap, Surgical Mask, Sterile Gloves and Chlorhexidine Sedation Given During Procedure Sedation Given (Indicate Dose Given): No Sedation given Patient Mental Status Patient Mental Status: Awake Nerve Block 1st Nerve Block: Laterality: Right Block Type: Erector Spinae (Lower) Ultrasound Image Saved?: No Needle / Catheter Used: 100mm SonoPlex II Local Anesthetic Bolus (Indicate Dose Given): Lidocaine used for local infiltration of skin, Injected in 3-5ml increments after negative blood aspiration, Bupivacaine 0.5% Dose:: 10ml and Exparel Dose:: 10 ml Additives (Indicate Dose Given): None Ultrasound: Sterile probe cover and gel used Nerve Stimulator: Not Used Paresthesia: None Procedure Tolerated: No Complications and Patient tolerated well Procedure Outcome: Successful Procedure Comment: procedure performed. suboptimal imaging but able to male out TP. needle advanced with bone contact. local injected with adequate appearing spread. At this time patient states he is uncomfortable, and feels like passing out. no image saved, injection completed, and patient laid down with improvement over the next few minutes. within 10 minutes he is able to move with much more comfort and states he is very happy with his pain relief. Will be monitored for 30 minutes and then likely discharged. Performed By: Hector Sánchez
[2023-04-10] MEDS: Bupivacaine 0.5% Pres-Free 10 ML VIAL (16:14)
[2023-04-10] MEDS: Bupivacaine LIPOSOME/PF 133 MG/10 ML VIAL IJ (16:14)
--- NOTE | 2023-04-10 16:17 | NUR.NOTE ---
Nursing Note:[id number] - Time out performed with Hector Sánchez CRNA before nerve block
== END 2023-04-10 17:09 | disposition home or self-care (01) ==
PROVIDERS: Internal Medicine; Nurse Practitioner Family; Emergency Provider Nurse Practitioner Acute Care; PCP Family Medicine
DX: S22.41XA Multiple fractures of ribs, right side, initial encounter for closed fracture (principal); Z98.1 Arthrodesis status; W10.8XXA Fall (on) (from) other stairs and steps, initial encounter; Y93.01 Activity, walking, marching and hiking
CPT/HCPCS: 74177; 80053; 82550; 93005; 96374; 99285; 70450; 71260; 72125; 83735; 85025; 93010; 99284; C9290; J0665; J1885; J3490

== ENCOUNTER 2023-04-21 13:02 | Outpatient (CLI) | payer MEDICARE, SELFPAY ==
--- NOTE | 2023-04-21 11:00 | DI.RAD_ITS ---
Exam(s) XR SHOULDER LT COMPLETE 2+V EXAM: XR SHOULDER LT COMPLETE 2+V CLINICAL HISTORY: LEFT SHOULDER PAIN. TECHNIQUE: 2D digital imaging was performed. COMPARISON: CR XR SHOULDER LT COMPLETE 2+V from 04/16/2021 FINDINGS: Two views. No evidence of fracture or dislocation. No abnormal soft tissue calcifications. There are moderate degenerative changes again noted in the glenohumeral joint. Mild diminution of the subacromial space is noted without upward subluxation of the humeral head within the osseous glenoid. No significant osseous lesions. Bone density normal. IMPRESSION: Degenerative changes in the glenohumeral joint but with minimal if any significant radiographic dent e when compared to April 2021. DATA REPOSITORY: RADIATION DOSE DELIVERED:
== END 2023-04-21 13:03 | disposition home or self-care (01) ==
LOC: DIORS 13:02
PROVIDERS: PCP Family Medicine; Referring Provider Family Medicine; Visit Provider Student in an Organized Health Care Education/Training Program
DX: M19.012 Primary osteoarthritis, left shoulder (principal); M75.102 Unspecified rotator cuff tear or rupture of left shoulder, not specified as traumatic
CPT/HCPCS: 20610; 73030; J1030

== ENCOUNTER → 2023-05-05 02:35 | Outpatient (CLI) | payer MEDICARE, SELFPAY ==
--- NOTE | 2023-05-05 | DI.MRI_ITS ---
Exam(s) MR ABDOMEN WO/W EXAM: MR ABDOMEN WO/W CLINICAL HISTORY: MASS OF PANCREAS K86.89 DISEASE OF PANCREAS TECHNIQUE: Multiplanar multisequence MRI of the Abdomen was performed. CONTRAST MATERIAL: IV Contrast: 20 mL of Dotarem contrast administered. COMPARISON: CT CT CHEST/ABD/PEL W from 04/10/2023 FINDINGS: Patient motion artifact is present. This limits examination. Liver: Unremarkable. No evidence of a hepatic mass. Pancreas: There is a 1.4 x 1.0 cm mass in the tail of the pancreas (series [id number], image 25). It is h yperintense on the T2 weighted images. It appears to represent 2 adjacent cystic lesions (series 900 1, image 26). No other pancreatic mass is seen. No peripancreatic fluid collections are seen. No i nflammatory stranding is seen around the pancreas. Gallbladder and Bile Ducts: There is no cholelithiasis or biliary ductal dilatation. Adrenals: There is a 1.3 x 1.7 cm fat signal intensity lesion on the left adrenal gland consistent wi th a myelolipoma. (Series [id number] image 27). The right adrenal gland is unremarkable. Kidneys: There are simple cysts seen in the kidneys bilaterally. No follow-up is recommended. Spleen: Unremarkable. Bowel: Unremarkable. Aorta: Unremarkable. Soft Tissues: Unremarkable. Bone: Unremarkable. Lymph Nodes: Unremarkable. The postcontrast images are nondiagnostic secondary to significant motion artifact in the region of t he tail of the pancreas. No suspicious large enhancing lesions are seen in the visualized portions o f the liver spleen or kidneys. IMPRESSION: 1. 1.4 x 1 cm hyperintense T2 lesion in the tail of the pancreas. This is consistent with a cystic l esion. Cystic neoplasm can not be entirely excluded. Follow-up examination every 2 years x5 is joseph mmended in this patient. (John Paul et al 2017). 2. Simple bilateral renal cysts. No follow-up is recommended. 3. 1.3 x 1.7 cm fat lesion in the left adrenal gland most suggestive of a myelolipoma. No follow-up is recommended. DATA REPOSITORY:
[2023-05-05] MEDS: Gadoterate meglumine 20 ML VIAL IVP (10:28)
[2023-05-05] MEDS: Normal Saline - Diluent 50 ML VIAL IJ (10:29)
[2023-05-05 19:38] LABS: PSA, Screening 2.7 ng/mL (<=6.5)
== END ==
PROVIDERS: PCP Family Medicine; Visit Provider Family Medicine
DX: K86.89 Other specified diseases of pancreas (principal); N40.0 Benign prostatic hyperplasia without lower urinary tract symptoms
CPT/HCPCS: 74183; 84153

== ENCOUNTER 2024-08-16 10:25 | Emergency (ER) | payer MEDICARE, SELFPAY ==
--- NOTE | 2024-08-16 10:30 | RT.EKG_ITS ---
APPROVED REPORT Exam: Resting ECG Reason for Exam: dizzy Patient Location: E HR:74 bpm ECG Measurements Heart Rate 74 AXIS NH 162 P 4 QRSd 133 QRS 42 QT 417 T 226 QTc 464 Conclusion Sinus rhythm...normal P axis, V-rate 60- 99 Right bundle branch block...QRSd>120, terminal axis(90,270) Abnrm T, consider ischemia, anterolateral lds...T <-0.20mV, I aVL V2-V6 No Occlusion NE
[2024-08-16 10:46] VITALS: BP 166/72; PULSE 82; RESP 18; TEMP 37; O2SAT 96
--- NOTE | 2024-08-16 10:46 | W.ED.GENAD ---
Discharge Plan Disposition Patient Disposition: Home Discharge Details Clinical Impression: Hx of falling, Immunization, tetanus-diphtheria, Laceration of right lower leg Primary Care Provider: Debi Bone ED Provider: Christiano De La Garza Home Meds and New Rx's Prescriptions: New cephalexin 500 mg capsule 500 mg PO BID 5 Days Qty: 10 0RF Continued sennosides [Senna Laxative] 8.6 MG tablet 8.6 mg PO 4 tabs daily MEDICAL MARIJUANA 3 inh Inhalation PRN ondansetron HCl [Zofran] 4 mg tablet 4 mg PO Q8H PRN cyanocobalamin (vitamin B-12) 1,000 mcg capsule 1,000 mcg PO DAILY nortriptyline 25 mg capsule 25 mg PO QHS capsaicin 0.1 % cream 1 applic topical BID Rx Instructions: do not wash area for at least 30 min after application zolpidem 10 MG tablet 10 mg PO .QHS acetaminophen-codeine 300-30 mg tablet 1 tab PO BID PRNQty: 10 0RF naloxone [Narcan] 4 mg/actuation spray,non-aerosol 1 spray intranasal Q2-3M PRNQty: 2 0RF Rx Instructions: spray 1 dose into ONE nostril; alternate nostrils w each dose until help arrives duloxetine 60 mg capsule,delayed release(DR/EC) 60 mg PO DAILY Patient Comments: TAKE ONE CAPSULE BY MOUTH EVERY DAY lidocaine 5 % adhesive patch,medicated 1 patch topical DAILY Qty: 15 0RF Rx Instructions: leave on most painful area for up to 12 hrs ibuprofen 600 mg tablet 600 mg PO Q6H PRNQty: 20 0RF Discharge Instructions Additional Instructions: You are seen in the emergency department following a fall. Your CAT scan showed no sign of any bleeding in your head. Your CAT scan showed no sign of any rib fractures. Please return to the emergency department if you develop nausea vomiting chest pain or shortness of breath. Please take these antibiotics as directed to prevent an infection of your leg laceration. Please follow-up with your primary care provider. Discharge Data Discharge Date/Time-TO BE ENTERED AT DEPARTURE: 08/16/24 12:57 HPI General Date/Time Provider Initiated Documentation: 08/16/24 10:42. HPI Narrative: MDM This is an elderly normothermic and nontachycardic 79-year-old male with left-sided chest wall tenderness pain status post fall concerning for rib fracture for which patient will undergo CT scan. Given head strike will also obtain CT head. No pain out of proportion to suggest necrotizing soft tissue infection. No ongoing dizziness to suggest posterior circulation CVA so I did not feel the patient required an MRI. No tonic-clonic activity to suggest seizure so no indication for EEG. Patient does have an approximately 2 x 2 cm anterior right goyal bruise. Will order right lower extremity tib-fib film. Will update tetanus status. Given wound from 3 days ago will allow to heal by secondary intention. Given age and location of wound concerned about the possibility of poor wound healing and infection I ordered cephalexin. No midline cervical spinal tenderness to suggest increased risk for cervical spinal fracture fracture. He had an ECG performed from triage which showed diffuse T wave inversions. His prior ECG from 2023 had significant artifact but also showed diffuse T wave versions. In the absence of chest pain I did not obtain troponin. 12:40 PM Reassuring tib-fib film. No sign of intracranial hemorrhage. CT chest with no left-sided rib fractures. Old right-sided rib fractures which patient reports is from prior fall last year. Will update tetanus and have nursing contact team clean and dress wound at discharge with strict return indications including any nausea vomiting recurrent dizziness or chest pain. Patient passed amatory trial in the ED. 08/18 Late charting due to patient care. I spoke with Dr. Hyatt on her shift yesterday as a I inadvertently neglected to prescribe this patient cephalexin as an outpatient. She called in a prescription for 5 days. HPI The patient presents to the emergency department for evaluation of rib pain. 3 days ago, he experienced a fall from the first step of his deck porch, landing on his left flank. The fall was preceded by a dizzy spell, which he describes as feeling like an irresistible force pulling him backwards. He continues to experience lightheadedness and nausea. During the fall, he also sustained a head injury, hitting his forehead. Additionally, he has a significant laceration on his right goyal, which he has been managing with a bandage. Exam General: Elderly-appearing in no acute distress speaking in complete sentences. Head: Normocephalic, atraumatic. Eye:[Pupils equal, round reactive to light.] Extraocular eye movements intact. No conjunctival injection. No scleral icterus. Ear, nose, mouth, throat: Grossly normal inspection. Normal voice, handling secretions normally. Neck: Trachea midline. Cardiovascular: Well-perfused distal extremities. Respiratory: Nonlabored respiration. Clear lungs bilaterally. Chest wall: No flail segments. Left-sided mid axillary chest wall tenderness. No crepitance. Gastrointestinal: Nondistended abdomen. Soft. Nontender. Musculoskeletal: No edema. Moving all 4 extremities spontaneously. On the right mid tibia there is a hemostatic approximately 1 x 1 cm laceration. Skin: Normal for age and race, grossly normal temperature and turgor. No acute rash. Neurologic: Alert and appropriate, no apparent acute deficits. GCS 15. Related Data Home Medications ?Medication ?Instructions ?Recorded ?Confirmed zolpidem 10 mg tablet 10 mg PO .QHS 01/10/13 08/16/24 sennosides 8.6 mg tablet (Senna 8.6 mg PO 4 tabs daily 10/10/15 08/16/24 Laxative) Medical Marijuana 3 inh inhalation PRN 04/30/17 08/16/24 ondansetron HCl 4 mg tablet 4 mg PO Q8H PRN 06/15/19 08/16/24 (Zofran) acetaminophen 300 mg-codeine 30 mg 1 tab PO BID PRN #10 tabs 10/27/20 08/16/24 tablet naloxone 4 mg/actuation nasal 1 spray intranasal Q2-3M PRN #2 ea 10/27/20 08/16/24 spray (Narcan) cyanocobalamin (vitamin B-12) 1,000 mcg PO DAILY 03/06/21 08/16/24 1,000 mcg capsule capsaicin 0.1 % topical cream 1 applic topical BID 12/19/21 08/16/24 nortriptyline 25 mg capsule 25 mg PO QHS 12/19/21 08/16/24 duloxetine 60 mg capsule,delayed 60 mg PO DAILY 04/10/23 08/16/24 release ibuprofen 600 mg tablet 600 mg PO Q6H PRN #20 tabs 04/10/23 08/16/24 lidocaine 5 % topical patch 1 patch topical DAILY #15 ea 04/10/23 08/16/24 cephalexin 500 mg capsule 500 mg PO BID 5 days #10 caps 08/17/24 Previous Rx's ?Medication ?Instructions ?Recorded acetaminophen 300 mg-codeine 30 mg 1 tab PO BID PRN #10 tabs 10/27/20 tablet naloxone 4 mg/actuation nasal 1 spray intranasal Q2-3M PRN #2 ea 10/27/20 spray (Narcan) ibuprofen 600 mg tablet 600 mg PO Q6H PRN #20 tabs 04/10/23 lidocaine 5 % topical patch 1 patch topical DAILY #15 ea 04/10/23 cephalexin 500 mg capsule 500 mg PO BID 5 days #10 caps 08/17/24 Allergies Allergy/AdvReac Type Severity Reaction Status Date / Time tramadol Allergy Severe vertigo, Unverified 08/16/24 10:54 pt was hospitalized azithromycin Allergy Intermediate Liver Unverified 08/16/24 10:54 concerns chlorpheniramine (From Allergy Mild Unknown Unverified 08/16/24 10:54 Contac Cold-Flu Day and Night) propoxyphene HCl (From Allergy Mild Unknown Unverified 08/16/24 10:54 Wygesic) General DEIDRA: 3 PFSH All Active Problems (Updated 08/16/24 @ 11:43 by Christiano De La Garza MD) Laceration of right lower leg (Acute) Immunization, tetanus-diphtheria (Acute) Hx of falling (Acute) Bilateral sensorineural hearing loss (Acute) Mixed conductive and sensorineural hearing loss, unilateral, right ear with restricted hearing on the contralateral side (Acute) Essential tremor (Chronic 04/30/17) Memory loss (Acute 06/08/17) Neuropathy (Acute 04/30/17) Tubular adenoma of colon (Acute 06/2022) 2016, 2022 Chronic back pain (Chronic) Pre-op evaluation (Acute) Left flank pain (Acute) Erectile dysfunction (Acute) Benign prostatic hyperplasia with incomplete bladder emptying (Acute) Intercostal neuralgia (Acute) Anxiety with depression (Acute) Intention tremor (Acute) Pain syndrome, chronic (Chronic) Chronic pain syndrome (Chronic) Primary osteoarthritis, left shoulder (Acute) 40 mg subacromial injection: 12/25/2021; 04/16/2021 Left rotator cuff tear (Acute) Screening for colon cancer (Acute) Medical History (Updated 08/16/24 @ 11:43 by Christiano De La Garza MD) PAC (premature atrial contraction) 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 Passive suicidal ideations Abdominal distension Nausea Rhinitis Diverticulosis Depression Anxiety Polycythemia Vitamin B12 deficiency BPH (benign prostatic hyperplasia) Peripheral neuropathy Mild cognitive impairment Surgical History Hx of spinal surgery Metal rods removed from spine 05/19/22 Thyroid Spinal Fusion t8-t10 Repair of inguinal hernia Colonoscopy - MAC (11/28/16) Family History Father Liver cancer Mother Arthritis Social History (Updated 06/13/22 @ 11:51 by TERE Barboza) Smoking/Tobacco Use Status: Never Smoking risk assessment performed?: Yes Alcohol Intake: former Drug use: Daily Substance use type: marijuana Details: patient states he uses marijuana every night. Household members: spouse Housing: house Current gender identity: male What type of physical activity do you participate in: none and normal ROM and activity Do you feel safe at home: Yes Do you feel safe in your relationship?: Yes
--- NOTE | 2024-08-16 11:30 | DI.RAD_ITS ---
Exam(s) XR TIB/FIB RT EXAM: XR TIB/FIB RT CLINICAL HISTORY: Fall laceration. TECHNIQUE: 2D digital imaging was performed. COMPARISON: No exams were available for comparison FINDINGS: Two views No evidence of fracture of the tibia and fibula. Bone density normal. No osseous lesions. No radiopaque foreign bodies. No soft tissue gas. IMPRESSION: No significant radiograph findings in the tibia and fibula. DATA REPOSITORY: RADIATION DOSE DELIVERED:
--- NOTE | 2024-08-16 11:59 | DI.CT_ITS ---
Exam(s) CT HEAD WO EXAM: CT HEAD WO CLINICAL HISTORY: fall. TECHNIQUE: Imaging Protocol: Axial computed tomography images with coronal and sagittal reformatted images were created and reviewed COMPARISON: CT CT HEAD CERVICAL SPINE WO from 04/10/2023 FINDINGS: There are no skull fractures. There is no fluid in the visualized paranasal sinuses. There is no evidence of intracranial hemorrhage, mass effect, or shift of midline structures. There are no extra-axial fluid collections. The ventricles are not enlarged or shifted and there is no blood within the ventricular system nor within the basal cisterns. IMPRESSION: No acute intracranial findings on this noninfused CT scan of the brain. RADIATION DOSE DELIVERED: 918.5mGy.cm Total DLP DATA REPOSITORY: All CT scans at this facility are submitted to the National Radiology Data Registry (NRDR) Dose Index Registry (DIR) with the [employer] (ACR). RADIATION OPTIMIZATION: All CT scans at this facility use at least one of these dose optimization techniques: automated exposure control; mA and/or kV adjustment per patient size (includes targeted exams where dose is matched to clinical indication); or iterative reconstruction.
--- NOTE | 2024-08-16 12:00 | DI.CT_ITS ---
Exam(s) CT CHEST WO EXAM: CT CHEST WO CLINICAL HISTORY: Left-sided chest wall pain. TECHNIQUE: Multi planar reconstructions were performed. CONTRAST MATERIAL: None COMPARISON: CT CT CHEST/ABD/PEL W from 04/10/2023 FINDINGS: CHEST: LUNGS: There is an area of nodular infiltrate in the lateral aspect of the right upper lobe which was not evident on CT scan of April 2023 requires appropriate follow-up. There is a small pleural based density in the posterior aspect of the right upper lobe which is unchanged from prior CT scan of April 2023. There are no additional right lung findings and no pleural effusion. There are no significant left lung findings with exception of some atelectasis in the lingular segment of the left lung. There is also no pleural effusion on the left side. MEDIASTINUM: There is no obvious hilar nor mediastinal adenopathy. Visualized thyroid unremarkable. CARDIAC: Heart size is normal. There is no pericardial effusion.Coronary artery calcifications noted. Diameter of the ascending thoracic aorta is slightly prominent measuring 3.9 cm. VISUALIZED UPPER ABDOMEN:Cholelithiasis noted without evidence of acute cholecystitis. Adrenals appear unremarkable. No splenomegaly. OSSEOUS: There are healed fractures in the posterior aspect of the right 9th, 10th, 11th ribs. There is a nonexpansile sclerotic bone lesion again noted in the anterolateral aspect of the left 5th rib. There is a tiny sclerotic bone density in the posterior aspect of the left 9th rib again noted. No left rib fractures. IMPRESSION: 1. No left rib fractures. There are multiple healed and healing right rib fractures involving the posterior aspects of the right 9th, 10th, and 11th ribs. Incidentally noted are sclerotic non expansile benign-appearing bone lesions in the left 5th and 9th ribs 2. No left lung findings. No lung contusion or pneumothorax nor pleural effusion. 3. There is a nodular infiltrate in the right upper lobe which was not evident on the prior CT scan of 04/10/2023 and requires follow-up to resolution. No pleural effusions. No pneumothorax. Report called by myself to ER physician 08/16/2024 at 12:25 p.m. RADIATION DOSE DELIVERED: 278.91mGy.cm Total DLP DATA REPOSITORY: All CT scans at this facility are submitted to the National Radiology Data Registry (NRDR) Dose Index Registry (DIR) with the [employer] (ACR). RADIATION OPTIMIZATION: All CT scans at this facility use at least one of these dose optimization techniques: automated exposure control; mA and/or kV adjustment per patient size (includes targeted exams where dose is matched to clinical indication); or iterative reconstruction.
[2024-08-16] MEDS: Diph,Pertuss(Acell),Tet Vac/Pf 0.5 ML SYR IM (12:49)
[2024-08-16] MEDS: Cephalexin 500 MG CAP PO (12:49)
--- NOTE | 2024-08-17 14:39 | NUR.NOTE ---
Nursing Note: came to the ED looking for antibiotic orders for this patient. States she was seen by Dr. De La Garza yesterday and no prescription was sent. No prescription found that was sent electronically and MD note not completed yet- Dr. Hyatt made aware and will take care of this
== END 2024-08-16 12:57 | disposition home or self-care (01) ==
PROVIDERS: Emergency Provider Emergency Medicine; PCP Family Medicine
DX: S81.811A Laceration without foreign body, right lower leg, initial encounter (principal); R07.89 Other chest pain; Z23 Encounter for immunization; W10.8XXA Fall (on) (from) other stairs and steps, initial encounter
CPT/HCPCS: 99284 ×2; 90471; 71250; 90715; 93005; 70450; 73590; 93010

== ENCOUNTER 2024-11-22 02:03 | Outpatient (CLI) | payer MEDICARE, SELFPAY ==
--- NOTE | 2024-11-22 | DI.CT_ITS ---
Exam(s) CT CHEST WO EXAM: CT CHEST WO CLINICAL HISTORY: F/U RT PULMONARY NODULE AND NODULAR INFILTRATE,R91.1 TECHNIQUE: Imaging Protocol: Axial computed tomography images with coronal and sagittal reformatted images were created and reviewed. Computer aided detection (CAD) was utilized. CONTRAST MATERIAL: Intravenous: Omnipaque 350 Contrast volume:structured data ml. COMPARISON: CT CT CHEST/ABD/PEL W from 04/10/[address] CHEST WO from 08/16/2024 MR MR SPINE THORACIC WO CONT from 10/14/2024 FINDINGS: Pulmonary parenchyma: No consolidation. No dominant measurable mass. Decreased size of previously noted areas of nodularity in the right upper lobe. Is consistent with a benign process. Tracheobronchial tree: No bronchiectasis or mucous plugging. Mediastinum and Di: No dominant adenopathy or fluid collection. Pleura: No effusion. No pneumothorax. Heart: The heart is mildly dilated. [id number] coronary artery calcifications are seen. Aorta: Thoracic aorta non-dilated. Mild atherosclerotic changes. Pulmonary arteries: No gross evidence of emboli. Upper abdomen: No acute findings. Bones: Old right rib fractures again noted.Degenerative changes in the spine. Evidence of prior spinal rods which have been removed. Left costotransversectomy at T 10. Soft tissues: Unremarkable. IMPRESSION: Decreased size of previously noted areas of nodularity in the right upper lobe, consistent with a benign process. No infiltrate. RADIATION DOSE DELIVERED: 273.22mGy.cm Total DLP DATA REPOSITORY: All CT scans at this facility are submitted to the National Radiology Data Registry (NRDR) Dose Index Registry (DIR) with the [employer] (ACR). RADIATION OPTIMIZATION: All CT scans at this facility use at least one of these dose optimization techniques: automated exposure control; mA and/or kV adjustment per patient size (includes targeted exams where dose is matched to clinical indication); or iterative reconstruction.
== END 2024-11-22 02:23 ==
LOC: DI 02:03
PROVIDERS: PCP Family Medicine; Visit Provider Family Medicine
DX: R91.8 Other nonspecific abnormal finding of lung field (principal)
CPT/HCPCS: 71250